=== PATIENT | female | born 1985 | race Caucasian/White ===

== ENCOUNTER 2019-08-03 12:55 | Outpatient (CLI) | payer BC, SELFPAY ==
[2019-08-03 13:09] LABS: Basophils Absolute Auto 0.1 K/mm3 (0.0-0.1); Basophils Percent Auto 0.5 % (0.2-1.2); Eosinophils Absolute Auto 0.2 K/mm3 (0-0.3); Eosinophils Percent Auto 1.5 % (0-4.4); Hematocrit 45.3 % (37.0-47.0); Hemoglobin 15.1 g/dL (12.0-15.0); Immature Granulocyte Absolute 0.04 K/mm3 (0.00-0.031); Immature Granulocyte Percent A 0.3 % (0-0.5); Lymphocytes Absolute Auto 4.85 K/mm3 (0.9-3.2); Lymphocytes Percent Auto 36.3 % (18.3-44.2); Mean Corpuscular HGB Conc 33.3 g/dl (32-36); Mean Corpuscular Hemoglobin 29.5 pg (26-34); Mean Corpuscular Volume 88.5 fl (80-100); Mean Platelet Volume 10.4 fl (7.4-10.4); Monocytes Absolute Auto 0.8 K/mm3 (0.1-0.6); Monocytes Percent Auto 6.1 % (2.6-8.5); Neutrophils Absolute Auto 7.4 K/mm3 (1.3-6.7); Neutrophils Percent Auto 55.3 % (45.5-73.1); Platelet Count Result 240 k/mm3 (150-375); Red Blood Count 5.12 M/mm3 (4.2-5.4); Red Cell Distribution Width 13.2 % (11.5-14.5); White Blood Count 13.4 K/mm3 (4.5-10.0)
== END 2019-08-03 12:56 | disposition home or self-care (01) ==
LOC: ANHVADLAB 13:00 → ANHLAB 15:31
PROVIDERS: Visit Provider Internal Medicine Hematology & Oncology
DX: D72.823 Leukemoid reaction (principal)
CPT/HCPCS: 36415; 85025

== ENCOUNTER 2019-09-12 14:40 | Outpatient (CLI) | payer BC, SELFPAY ==
[2019-09-12 16:09] LABS: Thyroid Stimulating Hormone 3.85 uIU/mL (0.36-3.74)
== END 2019-09-12 14:41 | disposition home or self-care (01) ==
PROVIDERS: PCP Family Medicine; Visit Provider Nurse Practitioner Family
DX: E03.9 Hypothyroidism, unspecified (principal)
CPT/HCPCS: 36415; 84443

== ENCOUNTER 2020-03-18 11:24 | Outpatient (CLI) | payer BC, SELFPAY ==
[2020-03-18 12:54] LABS: Thyroid Stimulating Hormone 1.83 uIU/mL (0.36-3.74)
[2020-03-21 12:47] LABS: Vitamin D 25 Hydroxy 21 ng/mL (30-100)
== END 2020-03-18 11:25 | disposition home or self-care (01) ==
PROVIDERS: PCP Nurse Practitioner Family; Visit Provider Nurse Practitioner Family
DX: E03.9 Hypothyroidism, unspecified (principal); E55.9 Vitamin D deficiency, unspecified
CPT/HCPCS: 36415; 82306; 84443

== ENCOUNTER 2020-04-24 11:19 | Outpatient (CLI) | payer BC, SELFPAY ==
[2020-04-26 11:34] LABS: Vitamin D 25 Hydroxy 28 ng/mL (30-100)
== END 2020-04-24 11:20 | disposition home or self-care (01) ==
LOC: CHSLAB 11:21
PROVIDERS: PCP Family Medicine; Visit Provider Nurse Practitioner Family
DX: E55.9 Vitamin D deficiency, unspecified (principal)
CPT/HCPCS: 36415; 82306

== ENCOUNTER 2020-08-01 12:43 | Outpatient (CLI) | payer BC, SELFPAY ==
[2020-08-01 12:59] LABS: Basophils Absolute Auto 0.1 K/mm3 (0.0-0.1); Basophils Percent Auto 0.4 % (0.2-1.2); Eosinophils Absolute Auto 0.1 K/mm3 (0-0.3); Eosinophils Percent Auto 0.9 % (0-4.4); Hematocrit 43.9 % (37.0-47.0); Hemoglobin 14.7 g/dL (12.0-15.0); Immature Granulocyte Absolute 0.05 K/mm3 (0.00-0.031); Immature Granulocyte Percent A 0.4 % (0-0.5); Lymphocytes Absolute Auto 4.49 K/mm3 (0.9-3.2); Lymphocytes Percent Auto 32.6 % (18.3-44.2); Mean Corpuscular HGB Conc 33.5 g/dl (32-36); Mean Corpuscular Hemoglobin 29.6 pg (26-34); Mean Corpuscular Volume 88.3 fl (80-100); Mean Platelet Volume 10.3 fl (7.4-10.4); Monocytes Absolute Auto 0.8 K/mm3 (0.1-0.6); Monocytes Percent Auto 5.5 % (2.6-8.5); Neutrophils Absolute Auto 8.3 K/mm3 (1.3-6.7); Neutrophils Percent Auto 60.2 % (45.5-73.1); Platelet Count Result 241 k/mm3 (150-375); Red Blood Count 4.97 M/mm3 (4.2-5.4); Red Cell Distribution Width 13.2 % (11.5-14.5); White Blood Count 13.8 K/mm3 (4.5-10.0)
[2020-08-01 13:02] LABS: Blood Urea Nitrogen 8 mg/dL (8-26); Carbon Dioxide 20 mmol/L (22-30); Chloride 109 mmol/L (98-109); Estimated Glomerular Filt Rate > 60; Glucose 87 mg/dL (70-105); Potassium 3.9 mmol/L (3.5-4.9); Sodium 142 mmol/L (138-146)
[2020-08-01 13:04] LABS: Atypical Lymphocytes Present; Platelet Estimate Adequate (Adequate)
[2020-08-01 18:24] LABS: Alanine Aminotransferase 15 U/L (4-35); Alkaline Phosphatase 70 U/L (38-126); Anion Gap 10 mmol/L (8-16); Aspartate Amino Transferase 21 U/L (14-36); Bilirubin,Total 0.8 mg/dL (0.2-1.3); Blood Urea Nitrogen 8 mg/dL (7-17); Calcium 9.4 mg/dL (8.4-10.2); Carbon Dioxide 19 mmol/L (22-30); Chloride 112 mmol/L (98-107); Estimated Glomerular Filt Rate > 60; Glucose 89 mg/dL (65-105); Lactate Dehydrogenase 382 U/L (313-618); Potassium 4.1 mmol/L (3.4-5.0); Sodium 141 mmol/L (137-145)
== END 2020-08-01 12:44 | disposition home or self-care (01) ==
LOC: ANHLAB 12:46
PROVIDERS: PCP Family Medicine; Visit Provider Internal Medicine Hematology & Oncology
DX: D72.823 Leukemoid reaction (principal)
CPT/HCPCS: 36415; 80048; 80053; 83615; 85025

== ENCOUNTER 2020-09-19 11:08 | Outpatient (CLI) | payer BC, SELFPAY ==
[2020-09-19 12:28] LABS: Free T4 Free Thyroxine 1.07 ng/dL (0.76-1.46); Thyroid Stimulating Hormone 0.07 uIU/mL (0.36-3.74)
[2020-09-23 02:55] LABS: Vitamin D 25 Hydroxy 43 ng/mL (30-100)
== END 2020-09-19 11:09 | disposition home or self-care (01) ==
LOC: CHSLAB 11:11
PROVIDERS: PCP Family Medicine; Visit Provider Nurse Practitioner Family
DX: E03.9 Hypothyroidism, unspecified (principal); E55.9 Vitamin D deficiency, unspecified
CPT/HCPCS: 36415; 82306; 84439; 84443

== ENCOUNTER 2020-10-13 09:23 | Emergency (ER) | payer BC, SELFPAY ==
--- NOTE | ~2020-10-13 | US_ITS ---
EXAMINATION: US OB <=14 wk fetus w TV DATE: 10/13/2020 12:19 INDICATION: Back pain and cramping TECHNIQUE: Real-time pelvic transabdominal and transvaginal ultrasound was performed. COMPARISON: None. FINDINGS: The uterus measures 6.3 x 4.2 x 3.4 cm. The pole is not yet identified A yolk sac is identified. There is an intrauterine gestational sac measuring 8 mm , which correlates with an estim ated gestational age of 5 weeks and 3 day(s) (+/-) 3 day(s). The pole is not yet identified. The right ovary measures 1.7 x 1.2 x 0.8 cm. The left ovary measures 3.2 x 2.9 x 2.7 cm. There is nor mal vascular flow in the ovaries. There is no free fluid in the pelvis. IMPRESSION: 1. Intrauterine gestational sac with an estimated gestational age of 5 weeks and 3 day(s) (+/-) 3 day (s) and an estimated delivery date of 06/12/2021 based on mean sac diameter. Reviewed, dictated and finalized at location A. IMPRESSION: 1. Intrauterine gestational sac with an estimated gestational age of 5 weeks an d 3 day(s) (+/-) 3 day(s) and an estimated delivery date of 06/12/2021 based on mean sac diameter.
[2020-10-13 09:38] VITALS: BP 140/92; PULSE 81; RESP 18; TEMP 36.6; O2SAT 100
[2020-10-13 10:30] LABS: Basophils Percent Auto 0.2 % (0.2-1.2); Eosinophils Absolute Auto 0.1 K/mm3 (0-0.3); Eosinophils Percent Auto 0.7 % (0-4.4); Hematocrit 45.1 % (37.0-47.0); Hemoglobin 14.5 g/dL (12.0-15.0); Immature Granulocyte Percent A 0.6 % (0-0.5); Lymphocytes Absolute Auto 3.67 K/mm3 (0.9-3.2); Mean Corpuscular HGB Conc 32.2 g/dl (32-36); Mean Corpuscular Hemoglobin 29.5 pg (26-34); Mean Corpuscular Volume 91.7 fl (80-100); Mean Platelet Volume 10.2 fl (7.4-10.4); Monocytes Absolute Auto 0.8 K/mm3 (0.1-0.6); Monocytes Percent Auto 4.7 % (2.6-8.5); Neutrophils Absolute Auto 11.9 K/mm3 (1.3-6.7); Neutrophils Percent Auto 71.8 % (45.5-73.1); Platelet Count Result 217 k/mm3 (150-375); Red Blood Count 4.92 M/mm3 (4.2-5.4); Red Cell Distribution Width 13.4 % (11.5-14.5); White Blood Count 16.7 K/mm3 (4.5-10.0)
[2020-10-13 10:32] LABS: Add Urine Microscopic? NO; Appearance Urine Clear (Clear); Bilirubin Urine Negative (Negative); Blood Urine Negative (Negative); Color Urine Yellow (Yellow); Glucose Urine UA Negative (Negative); Ketones Urine Negative (Negative); Leukocyte Esterase Ur Negative LEU/UL (Negative); Nitrate Urine Negative (Negative); Protein Urine Negative (Negative); Urobilinogen Urine Negative mg/dL (<2.0)
[2020-10-13 10:39] LABS: Anion Gap 0 mmol/L (8-16); Blood Urea Nitrogen 9 mg/dL (7-17); Calcium 8.7 mg/dL (8.4-10.2); Carbon Dioxide 24 mmol/L (22-30); Chloride 109 mmol/L (98-107); Estimated CRCL calculation 136 ml/min; Estimated Glomerular Filt Rate > 60; Glucose 91 mg/dL (65-110); Potassium 3.8 mmol/L (3.4-5.0); Sodium 133 mmol/L (137-145)
[2020-10-13 11:43] VITALS: BP 132/81; PULSE 70; RESP 18; O2SAT 96
--- NOTE | 2020-10-13 12:56 | ED.GENADULT ---
HPI - General Adult General Chief complaint: Back Pain/Injury Stated complaint: back pain/ Time Seen by Provider: 10/13/20 11:38 Source: patient Mode of arrival: ambulatory Limitations: no limitations History of Present Illness HPI narrative: Patient presents for evaluation of low back pain with symptom onset eight days ago. No precipitating injury. She states she took a home test on Wednesday of this past week which was positive. 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 . She states she has had cramping in her low back bilaterally, with worsening symptoms yesterday. She also has some radiation of her symptoms into her pelvis bilaterally. She denies fever, chills, nausea, vomiting, vaginal bleeding or discharge. She has a hx of endometriosis with what sounds to be uterine ablation in the past. She has vitamins at home. No additional complaints or concerns. Related Data Home Medications Medication Instructions Recorded Confirmed [id number]-[id number] tablet PO 10/13/20 [] Allergies Allergy/AdvReac Type Severity Reaction Status Date / Time clavulanic acid [Augmentin] Allergy Intermediate Unknown Verified 10/13/20 09:40 amoxicillin Allergy Unknown Unknown Verified 10/13/20 09:40 AMOXICILLIN TRIHYDRATE Allergy Mild RASH Uncoded 10/13/20 09:40 POTASSIUM CLAVULANATE Allergy Mild RASH Uncoded 10/13/20 09:40 Review of Systems Review of Systems: CONSTITUTIONAL: Denies fever, chills, or sweats. EYES: Denies visual changes, redness, or discharge. ENT: Denies rhinorrhea, congestion, sore throat, or otalgia. CARDIOVASCULAR: Denies chest pain, palpitations, or edema. RESPIRATORY: Denies cough or dyspnea. GASTROINTESTINAL:Reports some abdominal cramping. Denies nausea, vomiting, or diarrhea. GENITOURINARY: Denies dysuria or hematuria. SKIN: Denies rash or itching. MUSCULOSKELETAL: Reports low back pain. Denies joint pain, or myalgia. NEUROLOGIC: Denies headache, numbness, dizziness, or weakness. PSYCHIATRIC: Denies anxiety or depression. [facility] Past Medical History Medical History Chronic headaches Chronic low back pain (03/09/16) Depression Endometriosis, site unspecified (03/09/16) Shorty's disease Hypothyroidism Leucocytosis Reactive Leucocytosis Overweight Tobacco use Vitamin D deficiency Surgical History Surgical History History of adenoidectomy Hx of tonsillectomy Family History Family History Other Family history of atrial fibrillation Family history of chronic obstructive pulmonary disease Family history of lung cancer Family history of lung disease Family history of thyroid disease Social History Social History (Updated 10/13/20 @ 12:58 by JOHANNY Rasheed, ) Smoking packs per day: 0.75 Smoking cigarettes per day: 15.0 Smoking status: Current some day smoker Tobacco type: cigarettes and cigars Additional smoking assessment comments: Quit 2013 Alcohol intake: current Alcohol use details: Social basis Substance use: never Living arrangements: alone Additional living arrangements comments: . Additional occupation/education comments: Works at [employer] Gender identity (if verbalized by the patient): Female Sexual Orientation (if Verbalized by the Patient): Straight or Heterosexual Spiritual care concerns: No Exam Narrative: GENERAL: Well-appearing, well-nourished, and in no acute distress. HEAD: Normocephalic, atraumatic. EYES: PERRLA and EOMI. ENT: Nares clear, no rhinorrhea or epistaxis. Mucous membranes moist. Oropharynx without tonsillar hypertrophy exudate or other lesions. Bilateral TMs pearly more nonbulging NECK: Supple. No adenopathy or
== END 2020-10-13 14:00 | disposition home or self-care (01) ==
PROVIDERS: Emergency Medicine; Emergency Provider Nurse Practitioner; PCP Family Medicine
DX: O26.891 Other specified pregnancy related conditions, first trimester (principal); M54.9 Dorsalgia, unspecified; Z3A.01 Less than 8 weeks gestation of pregnancy
CPT/HCPCS: 36415; 76801; 76817; 80048; 81003; 81025; 84702; 85025; 85461; 99284

== ENCOUNTER 2020-11-14 12:00 | Outpatient (CLI) | payer BC, SELFPAY ==
[2020-11-14 13:19] LABS: Free T4 Free Thyroxine 0.79 ng/dL (0.76-1.46); Thyroid Stimulating Hormone 1.82 uIU/mL (0.36-3.74)
== END 2020-11-14 12:01 | disposition home or self-care (01) ==
LOC: CHSLAB 12:03
PROVIDERS: PCP Family Medicine; Visit Provider Nurse Practitioner Family
DX: E03.9 Hypothyroidism, unspecified (principal); Z34.90 Encounter for supervision of normal pregnancy, unspecified, unspecified trimester
CPT/HCPCS: 36415; 84439; 84443; 84702

== ENCOUNTER 2020-11-28 11:39 | Outpatient (CLI) | payer BC, SELFPAY ==
[2020-11-28 12:11] LABS: Hematocrit 41.8 % (35.0-49.0); Hemoglobin 14.2 g/dL (12.0-15.0); Mean Corpuscular Hemoglobin 30.5 pg (27.0-31.0); Mean Corpuscular Volume 89.9 fL (78.0-102.0); Platelet Count Result 227 K/mm3 (150-420); Red Blood Count 4.65 M/mm3 (4.20-5.40); Red Cell Distribution Width 12.8 % (11.6-14.4); White Blood Count 17.2 K/mm3 (4.8-10.8)
[2020-11-28 12:17] LABS: Add Urine Microscopic? NO; Appearance Urine Clear (Clear); Bilirubin Urine Negative (Negative); Blood Urine Negative (Negative); Color Urine Light Yellow (Yellow); Glucose Urine UA Negative (Negative); Ketones Urine Negative (Negative); Leukocyte Esterase Ur Negative (Negative); Nitrate Urine Negative (Negative); Protein Urine Negative (Negative); Specific Grav Ur 1.025 (1.010-1.020); Urobilinogen Urine 0.2 mg/dL (0.2-1.0); pH Urine 5.5 (5.0-8.0)
[2020-11-28 13:00] LABS: Band Neutrophils Percent 0 % (0-6); Eosinophils Absolute Manual 0.17 K/mm3 (0.02-0.5); Eosinophils Percent Manual 1 % (1-6); Lymphocytes Absolute Manual 3.44 K/mm3 (1.1-4.5); Lymphocytes Percent Manual 20 % (18-44); Monocytes Absolute Manual 0.34 K/mm3 (0.1-0.90); Monocytes Percent Manual 2 % (3-9); Neutrophils Absolute Manual 13.24 K/mm3 (1.7-7.2); Neutrophils Percent Manual 77 % (46-73); Platelet Estimate Adequate (Adequate); Total Cells Counted 100
[2020-11-28 13:29] LABS: HIV 1 P24 AG Negative (Negative); HIV 1/2 AB Negative (Negative)
[2020-12-01 15:36] LABS: RPR Screen Non-Reactive (Non-Reactive)
[2020-12-01 18:56] LABS: Rubella IgG Antibody <0.90 Index
[2020-12-02 02:52] LABS: Vitamin D 25 Hydroxy 27 ng/mL (30-100)
[2020-12-02 10:40] LABS: Hematocrit 42.1 % (35.0-45.0); Hemoglobin 13.8 g/dL (11.7-15.5); MCH 30.6 pg (27.0-33.0); MCV 92.8 fL (80.0-100.0); Red Blood Cell Count 4.53 Mill/uL (3.80-5.10)
[2020-12-02 19:05] LABS: Hepatitis B Surface Antigen Nonreactive (Nonreactive); Hepatitis C Signal to Cutoff 0.01 ratio (<1.00); Hepatitis C Virus Antibody Nonreactive (Nonreactive)
[2020-12-08 18:04] LABS: CF Result NEGATIVE (NEGATIVE); Ethnicity NG
== END 2020-11-28 11:40 | disposition home or self-care (01) ==
LOC: CHSLAB 11:42
PROVIDERS: PCP Family Medicine; Visit Provider Student in an Organized Health Care Education/Training Program
DX: Z34.90 Encounter for supervision of normal pregnancy, unspecified, unspecified trimester (principal)
CPT/HCPCS: 36415; 81003; 81220; 81243; 82306; 83021; 84443; 85025; 86592; 86703; 86762; 86787; 86850; 86900; 86901; 87086

== ENCOUNTER 2021-03-02 10:51 | Outpatient (RCR) | payer BC, SELFPAY ==
[2021-03-02 11:25] VITALS: BP 123/76; PULSE 80
== END 2021-05-31 23:59 | disposition home or self-care (01) ==
LOC: ANHOBOP 10:51
PROVIDERS: PCP Family Medicine; Visit Provider Student in an Organized Health Care Education/Training Program
DX: O36.8120 Decreased fetal movements, second trimester, not applicable or unspecified (principal); Z3A.24 24 weeks gestation of pregnancy
CPT/HCPCS: 59025

== ENCOUNTER 2021-03-07 11:14 | Outpatient (RCR) | payer BC, SELFPAY ==
[2021-03-07 11:50] LABS: Basophils Absolute Auto 0.1 K/mm3 (0.0-0.1); Basophils Percent Auto 0.4 % (0.2-1.2); Eosinophils Absolute Auto 0.1 K/mm3 (0-0.3); Eosinophils Percent Auto 0.5 % (0-4.4); Hematocrit 39.1 % (37.0-47.0); Hemoglobin 13.2 g/dL (12.0-15.0); Immature Granulocyte Absolute 0.36 K/mm3 (0.00-0.031); Immature Granulocyte Percent A 1.8 % (0-0.5); Lymphocytes Absolute Auto 3.61 K/mm3 (0.9-3.2); Lymphocytes Percent Auto 17.7 % (18.3-44.2); Mean Corpuscular HGB Conc 33.8 g/dl (32-36); Mean Corpuscular Volume 91.8 fl (80-100); Mean Platelet Volume 9.8 fl (7.4-10.4); Monocytes Absolute Auto 0.9 K/mm3 (0.1-0.6); Monocytes Percent Auto 4.3 % (2.6-8.5); Neutrophils Absolute Auto 15.4 K/mm3 (1.3-6.7); Neutrophils Percent Auto 75.3 % (45.5-73.1); Platelet Count Result 212 k/mm3 (150-375); Red Blood Count 4.26 M/mm3 (4.2-5.4); Red Cell Distribution Width 13.1 % (11.5-14.5); White Blood Count 20.4 K/mm3 (4.5-10.0)
[2021-03-07 12:31] LABS: Vitamin D 25 Hydroxy 41.8 ng/mL
[2021-03-07 12:52] LABS: Glucose 1 Hour PP 50gm Dose 119 mg/dL
[2021-03-07] MEDS: RHO(D) IMMUNE GLOBULIN 300 MCG/2 ML SYRINGE IM (15:04)
== END 2021-06-05 23:59 | disposition home or self-care (01) ==
LOC: ANHLAB 11:14
PROVIDERS: PCP Family Medicine; Visit Provider Obstetrics & Gynecology
DX: Z29.13 Encounter for prophylactic Rho(D) immune globulin (principal); O36.0190 Maternal care for anti-D [Rh] antibodies, unspecified trimester, not applicable or unspecified; Z3A.00 Weeks of gestation of pregnancy not specified
CPT/HCPCS: 36415; 82306; 82947; 84443; 85025; 85461; 90384; 96372; J2790

== ENCOUNTER 2021-04-01 18:39 | Outpatient (CLI) | payer BC, SELFPAY ==
[2021-04-01 19:02] VITALS: BP 136/72; PULSE 97
[2021-04-01 19:40] VITALS: BP 136/72; PULSE 97
--- NOTE | 2021-04-01 19:45 | PC.NURSE ---
Dr Bautista notified of adm c/o of leaking, negative ROM plus, and reassuring fht's for gestational age.
== END 2021-04-01 19:44 | disposition home or self-care (01) ==
LOC: ANHOBOP 18:44 → ANHOBPP 18:45
PROVIDERS: PCP Family Medicine; Visit Provider Student in an Organized Health Care Education/Training Program
DX: O41.8X90 Other specified disorders of amniotic fluid and membranes, unspecified trimester, not applicable or unspecified (principal); Z3A.00 Weeks of gestation of pregnancy not specified
CPT/HCPCS: 59025; 84112; 99199

== ENCOUNTER 2021-04-18 15:53 | Outpatient (CLI) | payer BC, SELFPAY ==
[2021-04-18 16:10] LABS: Hematocrit 37.9 % (35.0-49.0); Hemoglobin 12.5 g/dL (12.0-15.0); Mean Corpuscular Hemoglobin 30.1 pg (27.0-31.0); Mean Corpuscular Volume 91.3 fL (78.0-102.0); Mean Platelet Volume 9.9 fl (9.2-11.8); Platelet Count Result 240 K/mm3 (150-420); Red Blood Count 4.15 M/mm3 (4.20-5.40); Red Cell Distribution Width 12.8 % (11.6-14.4)
[2021-04-18 16:23] LABS: White Blood Count 22.7 K/mm3 (4.8-10.8)
[2021-04-18 16:54] LABS: Band Neutrophils Percent 0 % (0-6); Basophils Percent Manual 0 % (0-1); Eosinophils Absolute Manual 0.22 K/mm3 (0.02-0.5); Eosinophils Percent Manual 1 % (1-6); Lymphocytes Absolute Manual 6.12 K/mm3 (1.1-4.5); Lymphocytes Percent Manual 27 % (18-44); Monocytes Percent Manual 4 % (3-9); Neutrophils Absolute Manual 15.43 K/mm3 (1.7-7.2); Neutrophils Percent Manual 68 % (46-73); Platelet Estimate Adequate (Adequate); Total Cells Counted 100
[2021-04-18 17:35] LABS: HIV 1 P24 AG Negative (Negative); HIV 1/2 AB Negative (Negative)
[2021-04-23 16:32] LABS: RPR Screen Non-Reactive (Non-Reactive)
== END 2021-04-18 15:54 | disposition home or self-care (01) ==
LOC: CHSLAB 15:55
PROVIDERS: PCP Family Medicine; Visit Provider Student in an Organized Health Care Education/Training Program
DX: Z34.03 Encounter for supervision of normal first pregnancy, third trimester (principal)
CPT/HCPCS: 36415; 85025; 86592; 86703

== ENCOUNTER 2021-05-16 14:18 | Observation (INO) | payer BC, SELFPAY ==
[2021-05-16 14:41] VITALS: BP 111/71; PULSE 91
[2021-05-16 15:00] VITALS: BP 114/66; PULSE 79
[2021-05-16 15:20] VITALS: BP 113/62; PULSE 82
--- NOTE | 2021-05-16 15:29 | OBADM ---
This patient, Itzel Garcia, admitted to the OB room OB Post 117 for observation. Patient/family oriented to hospital policies and general routines including ID bracelet, bed and alarms, visiting hours, pain management, procedures, bathroom and other care routines, personal items, smoking policy, room service/diet, and visiting hours. Patient/Family are encouraged to report perceived risks to care and to ask questions if they do not understand what they are told or what they should do.
--- NOTE | 2021-06-09 11:25 | PM.OBTRLD ---
OB - Triage/Final Diagnosis Visit Information Comments/Additional reasons for admission: I have assessed the risk for this patient, Itzel Garcia, and determined that she would benefit from observation care. Final Diagnosis (1) False labor: Code(s): O47.9 - False labor, unspecified Status: Acute
== END 2021-05-16 15:27 | disposition home or self-care (01) ==
PROVIDERS: Admitting Provider Student in an Organized Health Care Education/Training Program; PCP Family Medicine; Visit Provider Student in an Organized Health Care Education/Training Program
DX: O47.03 False labor before 37 completed weeks of gestation, third trimester (principal); Z3A.35 35 weeks gestation of pregnancy
CPT/HCPCS: G0378; G0379

== ENCOUNTER 2021-06-14 17:04 | Outpatient (CLI) | payer BC, SELFPAY | END 2021-06-14 17:57 | disposition home or self-care (01) | LOC: ANHOBOP 17:51 → ANHLDR 17:52 | PROVIDERS: PCP Family Medicine; Visit Provider Student in an Organized Health Care Education/Training Program | DX: O42.90 Premature rupture of membranes, unspecified as to length of time between rupture and onset of labor, unspecified weeks of gestation (principal); Z3A.00 Weeks of gestation of pregnancy not specified | CPT/HCPCS: 84112; 99199 ==

== ENCOUNTER 2021-06-16 12:05 | Outpatient (RCR) | payer BC, SELFPAY ==
[2021-06-12 11:22] VITALS: BP 119/74; PULSE 93
--- NOTE | ~2021-06-16 | US_ITS ---
EXAMINATION: US OB limited w BPP EXAM DATE: 06/12/2021 10:49 INDICATION: Decreased Movement, BPP 3rd trimester. TECHNIQUE: Pelvic obstetrical transabdominal sonogram was performed by a technologist. There are mu ltiple grayscale and Doppler images available for interpretation. Comparison is made to prior examina tion from 10/13/2020. FINDINGS: There is a single fetus identified in vertex presentation with a heart rate of 136 beats pe r minute. The placenta is located in the anterior position. There is no sonographic evidence of retr oplacental hemorrhage identified. AMNIOTIC FLUID INDEX Quadrant 1: 0 cm Quadrant 2: 1.4 cm Quadrant 3: 3.3 cm Quadrant 4: 2.8 cm Amniotic fluid index: 7.5 cm. (The 5th -- 95th percentile range is 7.2-22.6. BIOPHYSICAL PROFILE (performed by the technologist) breathing (30 sec sustained breathing in 30 minutes): 2 out of 2 movement (3 gross body movements in 30 minutes): 2 out of 2 tone (one episode of ysnobnb-jaupknqwn-bvdghwp limb movement): 2 out of 2 Amniotic fluid pocket (2 cm): 2 out of 2 Total score: 8 out of 8 IMPRESSION: 1. Single fetus with heart rate of 136 bpm. 2. Normal biophysical profile score of 8 out of 8. 3. LILIAN 7.5 cm, lower limits of normal. Reviewed, dictated and finalized at location B.
--- NOTE | ~2021-06-16 | US_ITS ---
EXAMINATION: US OB limited w BPP EXAM DATE: 06/16/2021 13:30 INDICATION: BPP, LILIAN, gestational age. 3rd trimester. TECHNIQUE: Pelvic obstetrical transabdominal sonogram was performed by a technologist. There are mu ltiple grayscale and Doppler images available for interpretation. Comparison is made to prior examina tion from 06/12/2021. FINDINGS: There is a single fetus identified in vertex presentation with a heart rate of 151 beats pe r minute. The placenta is located in the anterior position. There is no sonographic evidence of retr oplacental hemorrhage identified. AMNIOTIC FLUID INDEX Quadrant 1: 3.3 cm Quadrant 2: 2.0 cm Quadrant 3: 1.5 cm Quadrant 4: 1.1 cm Amniotic fluid index: 8.0 cm. (The 5th -- 95th percentile range is 7.1-21.4). BIOPHYSICAL PROFILE (performed by the technologist) breathing (30 sec sustained breathing in 30 minutes): 2 out of 2 movement (3 gross body movements in 30 minutes): 2 out of 2 tone (one episode of umkmvjq-mcexttmgq-olxihbj limb movement): 2 out of 2 Amniotic fluid pocket (2 cm): 2 out of 2 Total score: 8 out of 8 IMPRESSION: 1. Single fetus with heart rate of 151 bpm. 2. Normal biophysical profile score of 8 out of 8. 3. LILIAN 8.0 cm, lower limits of normal. Reviewed, dictated and finalized at location A.
[2021-06-16 12:44] VITALS: BP 122/94; PULSE 95
== END 2021-07-07 08:23 | disposition home or self-care (01) ==
LOC: ANHOBOP 12:05
PROVIDERS: PCP Family Medicine; Visit Provider Student in an Organized Health Care Education/Training Program
DX: O36.8130 Decreased fetal movements, third trimester, not applicable or unspecified (principal); Z3A.39 39 weeks gestation of pregnancy; Z3A.40 40 weeks gestation of pregnancy
CPT/HCPCS: 59025; 76815; 76819

== ENCOUNTER 2021-06-18 04:54 | Inpatient (IN) | payer BC, SELFPAY ==
[2021-06-18] VITALS (117 sets, daily range): BP systolic 64–155; BP diastolic 40–122; PULSE 66–248; RESP 16; TEMP 36.6–37.4; O2SAT 96–100; BMI 40.6
--- NOTE | 2021-06-18 05:08 | LDADM ---
This patient, Iztel Garcia, was admitted to Labor/Delivery/Recovery 108 on 06/18/21 at 04:54. Plans for labor, pain management and were discussed with patient. Patient/family oriented to hospital policies and general routines including ID bracelet, bed and alarms, visiting hours, pain management, procedures, bathroom and other care routines, personal items, smoking policy, room service/diet and guest tray routines, security routines, and visiting hours. Patient/Family are encouraged to report perceived risks to care and to ask questions if they do not understand what they are told or what they should do. See OBIX for further documentation.
[2021-06-18 05:27] LABS: Basophils Absolute Auto 0.1 K/mm3 (0.0-0.1); Basophils Percent Auto 0.4 % (0.2-1.2); Eosinophils Absolute Auto 0.1 K/mm3 (0-0.3); Eosinophils Percent Auto 0.6 % (0-4.4); Hematocrit 39.4 % (37.0-47.0); Hemoglobin 13.2 g/dL (12.0-15.0); Immature Granulocyte Absolute 0.48 K/mm3 (0.00-0.031); Immature Granulocyte Percent A 2.2 % (0-0.5); Lymphocytes Absolute Auto 3.94 K/mm3 (0.9-3.2); Lymphocytes Percent Auto 17.7 % (18.3-44.2); Mean Corpuscular HGB Conc 33.5 g/dl (32-36); Mean Corpuscular Hemoglobin 29.9 pg (26-34); Mean Corpuscular Volume 89.1 fl (80-100); Mean Platelet Volume 10.2 fl (7.4-10.4); Monocytes Absolute Auto 1.2 K/mm3 (0.1-0.6); Monocytes Percent Auto 5.4 % (2.6-8.5); Neutrophils Absolute Auto 16.5 K/mm3 (1.3-6.7); Neutrophils Percent Auto 73.7 % (45.5-73.1); Platelet Count Result 219 k/mm3 (150-375); Red Blood Count 4.42 M/mm3 (4.2-5.4); Red Cell Distribution Width 13.4 % (11.5-14.5); White Blood Count 22.3 K/mm3 (4.5-10.0)
[2021-06-18] MEDS: LACTATED RINGERS 1,000 ML 125 ML IV CONT ×2 (05:40→08:32)
[2021-06-18] MEDS: OXYTOCIN 30 UNITS/NS 500 ML 30 UNITS/500 ML BAG 6 UNITS IV CONT (05:40)
[2021-06-18] MEDS: fentaNYL CITRATE INJ (*CRX) 100 MCG/2 ML VIAL 50 MCG IV PUSH (08:10)
--- NOTE | 2021-06-18 08:36 | PM.IMHP ---
H&P: HPI History of Present Illness Date/Time: 06/18/21 08:36 Patient is a 36-year-old last menstrual period 09/09/2020 currently 40 weeks 2 days gestation with SULEMA 06/16/2021. Patient is dated by LMP consistent with ultrasound on 11/08/20 at 8 weeks gestation. Patient presents to labor and delivery for scheduled elective induction of labor. In general, patient doing well. Reports occasional contractions. Denies any vaginal bleeding or leakage of fluid. Reports good movement. Chief Complaint: Intrauterine at 40w2d gestation Elective induction of labor Review of Systems Review of Systems: All systems reviewed & are unremarkable except as noted in HPI and below Constitutional: Constitutional: Reports as per HPI, Reports no additional constitutional complaints, Denies chills, Denies fever(s), Denies headache(s) and Denies night sweats Eyes: Eyes: Reports as per HPI and Reports no additional eye complaints ENT: Reports system reviewed and no additional complaints, except as documented, Reports as per HPI, Reports Normal hearing present and Denies headache(s) Cardiovascular: Cardiovascular: Reports as per HPI, Reports no additional cardiovascular complaints, Denies chest pain and Denies dyspnea Respiratory: Respiratory: Reports as per HPI, Reports no additional respiratory complaints, Denies cough and Denies dyspnea Gastrointestinal: Gastrointestinal: Reports as per HPI, Reports no additional gastrointestinal complaints, Denies abdominal pain, Denies change in bowel habits, Denies change in stool character, Denies nausea and Denies vomiting Genitourinary: Genitourinary: Reports no additional female genitourinary complaints, Reports as per HPI, Denies abnormal vaginal bleeding, Denies genital lesions, Denies hot flashes, Denies dyspareunia, Denies pelvic pain, Denies sexual dysfunction, Denies urinary incontinence, Denies vaginal discharge, Denies vaginal dryness and Denies vaginal odor Musculoskeletal: Musculoskeletal: Reports no additional musculoskeletal complaints and Reports as per HPI Integumentary/Breasts: Skin/Breast: Reports system reviewed and no additional complaints, except as docu, Reports as per HPI, Denies breast pain and Denies nipple discharge Neurologic: Reports system reviewed and no additional complaints, except as documented, Reports as per HPI, Reports Normal hearing present and Denies headache(s) Psychiatric: Psychiatric: Reports no additional psychiatric complaints, Reports as per HPI, Denies anxiety and Denies depression Endocrine: Endocrine: Reports no additional endocrine complaints and Reports as per HPI Hematologic/Lymphatic: Hematologic/Lymphatic: Reports no additional hematologic/lymphatic complaints and Reports as per HPI Allergic/Immunologic: Allergic/Immunologic: Reports no additional allergic/immunologic complaints and Reports as per HPI PMF Past Medical History Medical History Chronic headaches Chronic low back pain (03/09/16) Depression Endometriosis, site unspecified (03/09/16) Shorty's disease Hypothyroidism Leucocytosis Reactive Leucocytosis Overweight Tobacco use Vitamin D deficiency Surgical History Surgical History History of adenoidectomy Hx of laparoscopy Hx of tonsillectomy Family History Family History Father Family history of atrial fibrillation Aortic aneurysm Family history of chronic obstructive pulmonary disease Dementia Grandparent Family history of lung cancer Heart disease Mother Family history of thyroid disease Social History Social History Smoking packs per day: 0.25 Smoking cigarettes per day: 5.0 Smoking status: Current every day smoker Tobacco type: cigarettes Second hand tobacco smoke exposure: Yes Additional sm
--- NOTE | 2021-06-18 08:55 | WPDHPUPDATE1 ---
History and Physical Update Update Date/Time: 06/18/21 08:55 History and Physical has been reviewed, including an updated exam of the patient. There are NO changes in the patient's condition. Risks, benefits, and alternatives have been discussed and questions answered. Patient agrees to proceed with procedure.
--- NOTE | 2021-06-18 08:56 | WPDANESEPPF ---
Anes - Initial Pre Proc Eval Procedure: labor epidural Date/Time: 06/18/21 08:56 Surgeon: Madisyn Bryan MD Pre Op Diagnosis: labor pain Pre Op Diagnosis: IOL Patient Data Age: 36 Gender: F Height: 1.6 m Weight: 104 kg Last Vital Signs Temp 36.6 C 06/18/21 05:22 Pulse 80 06/18/21 08:55 BP 121/57 L 06/18/21 08:55 Pulse Ox 100 06/18/21 08:52 Allergies Allergy/AdvReac Type Severity Reaction Status Date / Time clavulanic acid [Augmentin] Allergy Intermediate Rash Verified 06/12/21 08:30 amoxicillin [From Augmentin] Allergy Mild Rash Verified 06/18/21 05:05 AMOXICILLIN TRIHYDRATE Allergy Mild RASH Uncoded 03/18/21 09:16 POTASSIUM CLAVULANATE Allergy Mild RASH Uncoded 03/18/21 09:16 Home Medications Medication Instructions Recorded Confirmed Type thyroid (pork) 60 mg tablet See Rx Instructions .ROUTE 05/26/21 06/18/21 Rx .COMPLEX #60 tablet [id number] fum-folic ac-om3 1 pkg PO 4XW 06/18/21 06/18/21 History [One Daily ] Laboratory Tests 06/18/21 06/18/21 06/18/21 05:20 05:20 05:20 WBC 22.3 K/mm3 H K/mm3 (4.5-10.0) RBC 4.42 M/mm3 M/mm3 (4.2-5.4) Hgb 13.2 g/dL g/dL (12.0-15.0) Hct 39.4 % % (37.0-47.0) MCV 89.1 fl fl (80-100) MCH 29.9 pg pg (26-34) MCHC 33.5 g/dl g/dl (32-36) RDW 13.4 % % (11.5-14.5) Plt Count 219 k/mm3 k/mm3 (150-375) MPV 10.2 fl fl (7.4-10.4) Immature Gran % (Auto) 2.2 % H % (0-0.5) Neut % (Auto) 73.7 % H % (45.5-73.1) Lymph % (Auto) 17.7 % L % (18.3-44.2) Payne % (Auto) 5.4 % % (2.6-8.5) Eos % (Auto) 0.6 % % (0-4.4) Baso % (Auto) 0.4 % % (0.2-1.2) Lymph # (Auto) 3.94 K/mm3 H K/mm3 (0.9-3.2) Payne # (Auto) 1.2 K/mm3 H K/mm3 (0.1-0.6) Eos # (Auto) 0.1 K/mm3 K/mm3 (0-0.3) Baso # (Auto) 0.1 K/mm3 K/mm3 (0.0-0.1) Abs Immat Gran (auto) 0.48 K/mm3 H K/mm3 (0.00-0.031) Absolute Neuts (auto) 16.5 K/mm3 H K/mm3 (1.3-6.7) Absolute Nucleated RBC 0.0 K/mm3 K/mm3 (0.0-0.012) Nucleated RBC % 0.0 % % (0.0-0.2) RPR Pending Blood Type A Negative Antibody Screen Negative Patient hx anesthesia problems: none Family hx anesthesia problems: none Results Review: All pre-operative results and documents have been reviewed as part of the pre-operative evaluation. [facility] Past Medical History Medical History Chronic headaches Chronic low back pain (03/09/16) Depression Endometriosis, site unspecified (03/09/16) Shorty's disease Hypothyroidism Leucocytosis Reactive Leucocytosis Overweight Tobacco use Vitamin D deficiency Surgical History Surgical History History of adenoidectomy Hx of laparoscopy Hx of tonsillectomy Family History Family History Father Family history of atrial fibrillation Aortic aneurysm Family history of chronic obstructive pulmonary disease Dementia Grandparent Family history of lung cancer Heart disease Mother Family history of thyroid disease Social History Social History Smoking packs per day: 0.25 Smoking cigarettes per day: 5.0 Smoking status: Current every day smoker Tobacco type: cigarettes Second hand tobacco smoke exposure: Yes Additional smoking assessment comments: Quit 2013 Alcohol intake: current Alcohol use details: Social basis Substance use: never Additional living arrangements comments: . Additional occupation/education comments: Works at [employer] Gender identity (if verbalized by the patient): Female Sexual Orientation (if Verbalized by the Patient):
[2021-06-18 12:39] LABS: Rapid Plasma Reagin Non-Reactive (NonReactive)
[2021-06-18] MEDS: ONDANSETRON INJ 4 MG/2 ML VIAL IV PUSH (12:54)
--- NOTE | 2021-06-18 20:45 | PM.OBPRVD ---
OB - Delivery Note Procedure Delivery date: 06/18/21 Procedure: The patient is a 36-year-old now who presented to labor and delivery on the morning of 06/18/2021 at 40 weeks 2 days gestation for elective induction of labor and postdates. Patient was admitted to labor and delivery. Initial cervical exam was approximately 2 cm dilated. Induction of labor was started with Pitocin. Pitocin was slowly titrated throughout the morning. Artificial rupture of membranes was performed at 7:57 a.m. Meconium-stained amniotic fluid was noted. Pitocin was continuously titrated throughout the morning. Patient became uncomfortable and requested an epidural for pain management which was placed without difficulty. Patient continued to make steady, progressive change throughout the remainder of the afternoon. Patient was noted to be fully dilated at 4:51 p.m. Patient was encouraged to push. She was prepped and draped for delivery. A right mediolateral episiotomy was performed and patient delivered infant head atraumatically and without difficulty in WILFRIDO presentation at 8:18 p.m. Occiput restituted to maternal right side. With subsequent push, the 's neck, shoulders, and rest of body delivered without difficulty. Due to meconium-stained amniotic fluid, was not stimulated. Infant did begin crying spontaneously, however, cord was quickly clamped and cut and infant was taken to warmer where care was assumed by awaiting nursing staff. A segment of cord was collected for cord gases. Cord blood was collected. The placenta was delivered spontaneously and intact. Uterine fundus was noted to be firm with massage. The episiotomy was repaired in with 2-0 and 3-0 Vicryl in the usual fashion. Excellent hemostasis was noted. No additional lacerations were noted. Estimated blood loss for entire delivery 150 cc. was a live-born female infant, apgars 9 and 9, weighing 7 lb 8 oz. Infant did have an elevated temperature immediately after delivery. Both mother baby doing well at end of delivery. Events: Elective Induction of Labor Induction method: Per Pitocin Protocol Delivery augmentation: Rupture of Membranes Delivery monitor: External FHT and External Uterine Route of delivery: Episiotomy description: Right Mediolateral Laceration Description: None (no additional lacerations) Delivery repair: vicryl (2-0 and 3-0 ) Specimen: Yes (placenta and cord, cord blood, and cord gases) Quantitative Blood Loss (ml): 150 Anesthesia type: Epidural Disposition: Floor Complications: No immediate complications Baby Date of : 06/18/21 Time of : 20:18 Weeks of gestation at delivery: 40 (40.2) gender: Female Weight (pounds): 7 Weight (ounces): 8 presentation: vertex position: Right Occiput Anterior Placenta delivery description: Spontaneous Cord Vessel Description: 3 Vessels score one minute: 9 score five minutes: 9 AMG Delivery Billing Delivery Delivery: Delivery Charge
[2021-06-18] MEDS: OXYTOCIN 30 UNITS/NS 500 ML 30 UNITS/500 ML BAG 125 UNITS IV CONT (20:50)
[2021-06-18] MEDS: LIDOCAINE HCL 1% LOCAL INJ 10 ML VIAL (22:11)
[2021-06-18] MEDS: IBUPROFEN 600 MG TABLET PO (22:26)
[2021-06-18] MEDS: BENZOCAINE 20% AER SPR (*SP) 56 GM CAN 1 SPRAY TOPICAL (22:26)
[2021-06-18] MEDS: WITCH HAZEL 40 PADS 1 PAD TOPICAL (22:26)
--- NOTE | 2021-06-18 23:05 | OBPPTRN ---
Patient transferred to post room # 281 via wheelchair. Support persons present. Oriented to unit, room, information board, rooming in, admission packet and security measures. Patient verbalizes understanding.
[2021-06-18] MEDS: HYDROcodone/acetaminophen (*CRX) 5-325 MG TABLET 1 TAB PO (23:21)
[2021-06-19] MEDS: HYDROcodone/acetaminophen (*CRX) 5-325 MG TABLET 1 TAB PO ×5 (02:17→21:09)
[2021-06-19 03:40] VITALS: BP 107/79; PULSE 60; RESP 16; TEMP 36.7; O2SAT 99
[2021-06-19 04:46] LABS: Hematocrit 35.6 % (37.0-47.0); Hemoglobin 12.2 g/dL (12.0-15.0)
--- NOTE | 2021-06-19 07:40 | PC.NURSE ---
0730 - Introductions were made, then consulted with patient to assess needs related to . Mother led the conversation with her experience feeding her infant so far. Encouraged understanding of the benefits of skin to skin (unwrapping infant and placing vertically on her chest), responsive feeding and how to watch for early feeding signs, frequency of feeding on demand about every 8-12 times in 24 hours (every 2-3 hours), milk production, duration of feeding, signs of adequate intake/output and how to record on the feeding sheet. Nipple care reviewed with optimal latch and good positioning. Reviewed good handwashing when or touching the breast/nipples to prevent infection. Resources used to facilitate learning were used with the visual handouts/mom and baby guide. Mother voiced understanding of responsive feedings, stimulating with skin to skin, hand expressed colostrum, touch, talking to to encourage if it has been 2 -3 hours since the start of the last , to call if does not latch or there is discomfort with . Reported to the primary RN.
[2021-06-19 08:00] VITALS: BP 123/67; PULSE 63; RESP 18; TEMP 36.4
[2021-06-19] MEDS: LANOLIN (LANSINOH) 7.5 GM CREAM 1 APPLIC TOPICAL (08:12)
[2021-06-19] MEDS: DOCUSATE SODIUM 100 MG CAPSULE PO ×2 (08:13→17:25)
[2021-06-19] MEDS: MULTIVIT/MIN/PREN/FOL AC/IRON TABLET 1 TAB PO (08:13)
[2021-06-19] MEDS: IBUPROFEN 600 MG TABLET PO ×3 (08:13→21:09)
--- NOTE | 2021-06-19 08:34 | PM.OBPNVD ---
OB - PN: Subj Subjective Date/time seen: 06/19/21 08:34 Patient doing well this AM. Pain well controlled with medication. Normal lochia. Ambulating without difficulty. Voiding well. OB - PN: Obj Data Labs CBC & Chem 7: 06/19/21 03:51 Labs: Laboratory Results - last 24 hr 06/18/21 06/19/21 05:20 03:51 Hgb 12.2 Hct 35.6 L RPR Non-reactive OB - PN A/P Assessment and Plan (1) Normal spontaneous vaginal delivery: Code(s): O80 - Encounter for full-term uncomplicated delivery Status: Acute Assessment and Plan: PPD#1 doing well continue routine care Time Spent With Patient Time: Total time spent is greater than 50% in coordination of care (as documented) at patient's floor/unit and/or counseling patient: Exam Const: General: cooperative, healthy appearing, comfortable and no acute distress GI: Inspection: non-distended GI Palp: Yes Soft to palpation and No Tenderness to palpation present (GI) Other: fundus firm below umbilicus Extrem: Right lower extremity: no edema Left lower extremity: no edema Other: no calf tenderness
--- NOTE | 2021-06-19 10:34 | WPDANLDPN2 ---
Anes-Prog Note L&D Date/Time: 06/19/21 10:34 Comfortable throughout: labor and delivery Neuraxial method: epidural Epidural/Spinal procedure site: clean & non-tender Neuro status: Neuro function grossly intact. Cardiovascular status: normal Respiratory status: normal Airway patency: baseline Mental status: baseline Post-Op hydration status: normal Vital Signs: Last Vital Signs Temp 36.4 C 06/19/21 08:00 Pulse 63 06/19/21 08:00 Resp 18 06/19/21 08:00 BP 123/67 06/19/21 08:00 Pulse Ox 99 06/19/21 03:40 Pain score (VAS): 03/10 I/O: Intake & Output 06/18/21 06/19/21 06/19/21 23:59 07:59 15:59 Intake Total 200 Output Total 600 Balance -600 200 Post-procedural complaints: none Patient feedback: Patient satisfied with anesthetic care.
[2021-06-19 11:25] VITALS: BP 105/47; PULSE 61; PULSE 72; RESP 18; TEMP 36.9; O2SAT 99
[2021-06-19 16:00] VITALS: BP 120/65; PULSE 68; RESP 20; TEMP 36.6
[2021-06-19] MEDS: WITCH HAZEL 40 PADS 1 PAD TOPICAL (17:25)
[2021-06-19] MEDS: BENZOCAINE 20% AER SPR (*SP) 56 GM CAN 1 SPRAY TOPICAL (17:25)
[2021-06-19 19:08] VITALS: BP 118/67; PULSE 71; RESP 18; TEMP 36.4
--- NOTE | 2021-06-20 07:26 | PM.OBPNVD ---
OB - PN: Subj Subjective Date/time seen: 06/20/21 07:26 Patient doing well. Denies significant pain. Also denies any headache, chest pain, SOB, N/V. Ambulating without difficulty. Minimal lochia. OB - PN: Obj Data Labs CBC & Chem 7: 06/19/21 03:51 OB - PN A/P Assessment and Plan (1) Normal spontaneous vaginal delivery: Code(s): O80 - Encounter for full-term uncomplicated delivery Status: Acute Assessment and Plan: PPD#2 doing well dc home in stable condition emergency precautions reviewed Time Spent With Patient Time: Total time spent is greater than 50% in coordination of care (as documented) at patient's floor/unit and/or counseling patient: Exam Const: General: cooperative, healthy appearing, comfortable and no acute distress GI: Inspection: non-distended GI Palp: Yes Soft to palpation and No Tenderness to palpation present (GI) Other: fundus firm below umbilicus Extrem: Right lower extremity: edema (trace) Left lower extremity: edema (trace)
--- NOTE | 2021-06-20 07:28 | PM.OBDSVD ---
DS: Admitting Diagnosis Discharge Date 06/20/21 Admitting Diagnosis IUP at 40w2d Elective induction of labor OB - DS: Summary OB Procedures : None OB Procedures Intrapartum: Spontaneous Vag Delivery OB Procedures: : None Time Spent with Patient Time attestation: Total time spent providing and/or coordinating discharge services: DS: Data Data Completed and Pending Pending studies at discharge: Pending at discharge 06/18/21 20:21 Surgical [PTH] Routine Discharge Plan Discharge Attending physician on discharge: Madisyn Bryan Discharging Clinician: Madisyn Bryan Anticipated Discharge Date/Time: 06/20/21 07:28 Patient Disposition: Home, Self-Care Activity: as tolerated and pelvic rest Diet: regular Discharge Instructions: Call office ([phone]) to schedule a visit in 4-6 weeks. You may take Ibuprofen 600mg every 6 hours as needed for pain. Pain medication may make you constipated. It may be helpful to take an ovie-gso-iqbxkjo stool softener, such as Colace and/or Senokot, along with the pain medication to help lessen constipation. Call office or go to ED for pain not controlled with medication, headache, chest pain, shortness of breath, fever, chills, persistent nausea or vomiting, severe abdominal pain, heavy vaginal bleeding >2 pads/hour, foul vaginal discharge or odor, or problems with your breasts. 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
[2021-06-20 08:10] VITALS: BP 114/64; PULSE 72; RESP 16; TEMP 36.9; O2SAT 99
[2021-06-20] MEDS: IBUPROFEN 600 MG TABLET PO (09:43)
[2021-06-20] MEDS: MULTIVIT/MIN/PREN/FOL AC/IRON TABLET 1 TAB PO (09:43)
[2021-06-20] MEDS: DOCUSATE SODIUM 100 MG CAPSULE PO (09:43)
[2021-06-20] MEDS: MEASLES,MUMPS,RUBELLA VACCINE 0.5 ML VIAL (09:46)
--- NOTE | 2021-06-20 12:29 | PC.NURSE ---
0940 - Parents are involved in care. Father of baby states mother is every 2-3 hours. Mother denies discomfort with latch her infant to the breast. Voids and stools are great. 1015 - Mother called for a latch assessment. Mother denies pain, has good rocking motion. RN suggested positioning infant closer to mom aligning ear, shoulder, and hip, tucking baby's bottom in closer to improve chin buried into the breast. Detached due to less than 130 degree latch. Nipple appeared slightly tilted. Improved latch to the right breast in mother's preferred position of cradle hold. Infant maintained latch without discomfort to mother. Mother voiced understanding of information. Reported to primary RN.
[2021-06-21 10:58] VITALS: BP 115/80; PULSE 67; RESP 16; TEMP 36.8; O2SAT 98
== END 2021-06-20 12:20 | disposition home or self-care (01) | DRG 807 ==
LOC: ANHLDR 04:59 → ANHOB2 23:08
PROVIDERS: Admitting Provider Student in an Organized Health Care Education/Training Program; PCP Family Medicine; Visit Provider Student in an Organized Health Care Education/Training Program
DX: O77.0 Labor and delivery complicated by meconium in amniotic fluid (principal); Z37.0 Single live birth; Z3A.40 40 weeks gestation of pregnancy; O99.284 Endocrine, nutritional and metabolic diseases complicating childbirth; E06.3 Autoimmune thyroiditis
CPT/HCPCS: 36415; 85014; 85018; 85025; 86592; 86850; 86900; 86901; 88307; 90710; A9270; J2405; J2590; J2795; J3010; J7120

== ENCOUNTER 2021-06-25 15:27 | Outpatient (CLI) | payer BC, SELFPAY ==
[2021-06-25] VITALS (22 sets, daily range): BP systolic 130–142; BP diastolic 75–96; PULSE 42–67; RESP 16; TEMP 37.1; O2SAT 97–100
--- NOTE | 2021-06-25 16:07 | PC.NURSE ---
Addendum entered by Jaqueline Isbell RN 06/25/21 18:58: This note should actually be timed for 1734. Original Note: Dr. Bryan informed of BP's and pulse 42-58. Pt denies light headedness / dizziness, shortness of breath, chest discomfort, and feeling any palpitations. informed of lab results. Discussed pt's headache she has had since Wednesday. Order received to discharge from OB and have her go to ED for cardiac evaluation.
[2021-06-25 16:20] LABS: Hematocrit 33.7 % (37.0-47.0); Hemoglobin 11.2 g/dL (12.0-15.0); Mean Corpuscular HGB Conc 33.2 g/dl (32-36); Mean Corpuscular Hemoglobin 30.3 pg (26-34); Mean Corpuscular Volume 91.1 fl (80-100); Mean Platelet Volume 9.5 fl (7.4-10.4); Platelet Count Result 239 k/mm3 (150-375); Red Cell Distribution Width 13.1 % (11.5-14.5); White Blood Count 13.7 K/mm3 (4.5-10.0)
[2021-06-25 16:32] LABS: Alanine Aminotransferase 19 U/L (4-35); Albumin Level 3.3 g/dL (3.5-5.1); Alkaline Phosphatase 120 U/L (38-126); Anion Gap 4 mmol/L (8-16); Aspartate Amino Transferase 30 U/L (14-36); Bilirubin,Total 0.3 mg/dL (0.2-1.3); Blood Urea Nitrogen 11 mg/dL (7-17); Calcium 8.5 mg/dL (8.4-10.2); Carbon Dioxide 23 mmol/L (22-30); Chloride 111 mmol/L (98-107); Estimated Glomerular Filt Rate > 60; Glucose 78 mg/dL (65-110); Potassium 3.6 mmol/L (3.4-5.0); Sodium 138 mmol/L (137-145); Uric Acid 4.7 mg/dL (2.5-7.5)
[2021-06-25 16:39] LABS: Atypical Lymphocytes Present; Band Neutrophils Percent 1 % (0-6); Lymphocytes Absolute Manual 4.38 K/mm3 (1.1-4.5); Monocytes Absolute Manual 1.23 K/mm3 (0.1-0.90); Monocytes Percent Manual 9 % (3-9); Neutrophils Absolute Manual 8.08 K/mm3 (1.7-7.2); Neutrophils Percent Manual 58 % (46-73); Platelet Estimate Adequate (Adequate); Total Cells Counted 100
[2021-06-25 16:52] LABS: Add Urine Microscopic? YES; Appearance Urine Cloudy (Clear); Bacteria Urine Trace /hpf; Bilirubin Urine Negative (Negative); Blood Urine 3+ (Negative); Color Urine Yellow (Yellow); Glucose Urine UA Negative (Negative); Ketones Urine Negative (Negative); Leukocyte Esterase Ur 3+ LEU/UL (NEGATIVE); Mucus Urine Rare /lpf; Nitrate Urine Negative (Negative); Protein Urine Negative (Negative); Specific Grav Ur 1.006 (1.001-1.035); Squamous Epithelial Cell Urine Occasional /hpf (Few); Urobilinogen Urine Negative mg/dL (<2.0); WBC Urine >75 /hpf (0-3)
--- NOTE | 2021-06-25 16:54 | PC.NURSE ---
Dr. Bryan's office staff answered her cell phone and informed of pt's asymptomatic irregular bradycardia with pulse in the 40's-50's. Discussed hx of hypothyroidism. Requested her to ask Dr. Bryan if she would like pt to have an EKG while waiting for the rest of her labs to come back.
--- NOTE | 2021-06-25 17:54 | PC.NURSE ---
Called ED charge nurse to notify her of pt's evaluation in OB and Dr. Bryan's request for pt to be evaluated in ED for asymptomatic irregular bradycardia. ED RN states pt will need to go through triage. Discussed that pt will need to use a breast pump and RN suggested she do that before coming to ED.
--- NOTE | 2021-06-25 18:15 | PC.NURSE ---
Pt has finished pumping, basin with ice given to store breastmilk in. Pt to ED triage per wheelchair.
== END 2021-06-25 18:15 | disposition home or self-care (01) ==
LOC: ANHOBOP 15:33 → ANHOBPP 15:36
PROVIDERS: PCP Family Medicine; Visit Provider Student in an Organized Health Care Education/Training Program
DX: O13.5 Gestational [pregnancy-induced] hypertension without significant proteinuria, complicating the puerperium (principal)
CPT/HCPCS: 36415; 80053; 81001; 84550; 85025; 87086; 99199

== ENCOUNTER 2021-06-25 18:31 | Emergency (ER) | payer BC, SELFPAY ==
[2021-06-25] VITALS (7 sets, daily range): BP systolic 129–151; BP diastolic 77–111; PULSE 48–57; RESP 15–23; TEMP 36.6; O2SAT 99–100
--- NOTE | ~2021-06-25 | XR_ITS ---
EXAMINATION: XR chest 1V portable INDICATION: Preeclampsia, recent TECHNIQUE: Portable AP chest at 1938 hours COMPARISON: None available FINDINGS: There are minimal airspace opacities of the lung bases. No pleural effusion or pneumothorax is identified. The cardiomediastinal silhouette is normal. IMPRESSION: 1. Minimal bibasilar airspace opacities, consistent with atelectasis versus pneumonia. Reviewed, dictated and finalized at location F. IMPRESSION: 1. Minimal bibasilar airspace opacities, consistent with atelectasis versus pne umonia.
--- NOTE | 2021-06-25 19:03 | ECG_ITS ---
Measurements Intervals [place] Rate: 47 P: 6 NM: 156 QRS: 55 QRSD: 77 T: 52 QT: 405 QTc: 360 Interpretive Statements SINUS BRADYCARDIA, OTHERWISE NORMAL EKG NO PREVIOUS ECG AVAILABLE FOR COMPARISON Electronically Signed On 06-25-2021 20:17:25 CDT by Hilda Palafox M.D.
[2021-06-25 20:03] LABS: Hematocrit 35.8 % (37.0-47.0); Hemoglobin 11.8 g/dL (12.0-15.0); Mean Corpuscular Hemoglobin 30.2 pg (26-34); Mean Corpuscular Volume 91.6 fl (80-100); Mean Platelet Volume 9.7 fl (7.4-10.4); Platelet Count Result 260 k/mm3 (150-375); Red Blood Count 3.91 M/mm3 (4.2-5.4); Red Cell Distribution Width 13.2 % (11.5-14.5)
[2021-06-25 20:14] LABS: Alanine Aminotransferase 19 U/L (4-35); Albumin Level 3.4 g/dL (3.5-5.1); Alkaline Phosphatase 122 U/L (38-126); Anion Gap 4 mmol/L (8-16); Aspartate Amino Transferase 30 U/L (14-36); Bilirubin,Total 0.4 mg/dL (0.2-1.3); Blood Urea Nitrogen 9 mg/dL (7-17); Calcium 8.6 mg/dL (8.4-10.2); Carbon Dioxide 24 mmol/L (22-30); Chloride 110 mmol/L (98-107); Estimated CRCL calculation 127 ml/min; Estimated Glomerular Filt Rate > 60; Glucose 77 mg/dL (65-110); Potassium 3.6 mmol/L (3.4-5.0); Sodium 138 mmol/L (137-145)
[2021-06-25 20:16] LABS: Prothrombin Time 12.6 Seconds (11.1-14.7)
[2021-06-25 20:26] LABS: NT Pro B Type Natriuretic Pept 549 pg/mL (5-100); Troponin I < 0.012 ng/mL (0.000-0.034)
[2021-06-25 20:38] LABS: Band Neutrophils Percent 2 % (0-6); Eosinophils Absolute Manual 0.14 K/mm3 (0.02-0.5); Eosinophils Percent Manual 1 % (0-4); Lymphocytes Absolute Manual 4.76 K/mm3 (1.1-4.5); Monocytes Absolute Manual 0.84 K/mm3 (0.1-0.90); Monocytes Percent Manual 6 % (3-9); Neutrophils Absolute Manual 8.26 K/mm3 (1.7-7.2); Neutrophils Percent Manual 57 % (46-73); Total Cells Counted 100
[2021-06-25 20:39] LABS: Platelet Estimate Adequate (Adequate)
--- NOTE | 2021-06-25 20:43 | ED.GENADULT ---
HPI - General Adult General Chief complaint: Recheck/Abnormal Lab/Rx Stated complaint: sent from ob for bradycardia Time Seen by Provider: 06/25/21 19:00 Source: patient Mode of arrival: ambulatory Limitations: no limitations History of Present Illness HPI narrative: 36-year-old 1 para 1 1 week here with complaints of headache, leg swelling. Patient was initially evaluated by OB and was later sent here to the ER for bradycardia. Patient presently denies any chest discomfort or feeling lightheaded, short of breath. 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 Thyroid] 60 - 120 mg PO DAILY 06/25/21 06/25/21 Allergies Allergy/AdvReac Type Severity Reaction Status Date / Time clavulanic acid [Augmentin] Allergy Intermediate Rash Verified 06/25/21 18:57 amoxicillin [From Augmentin] Allergy Mild Rash Verified 06/25/21 18:57 AMOXICILLIN TRIHYDRATE Allergy Mild RASH Uncoded 03/18/21 09:16 POTASSIUM CLAVULANATE Allergy Mild RASH Uncoded 03/18/21 09:16 Review of Systems Review of Systems: All systems reviewed & are unremarkable except as noted in HPI and below Constitutional: Constitutional: Reports no additional constitutional complaints Eyes: Eyes: Reports no additional eye complaints ENT: Reports system reviewed and no additional complaints, except as documented Cardiovascular: Cardiovascular: Reports no additional cardiovascular complaints and Reports leg edema Respiratory: Respiratory: Reports no additional respiratory complaints Gastrointestinal: Gastrointestinal: Reports no additional gastrointestinal complaints Genitourinary: Genitourinary: Reports no additional female genitourinary complaints Musculoskeletal: Musculoskeletal: Reports no additional musculoskeletal complaints Integumentary/Breasts: Skin/Breast: Reports system reviewed and no additional complaints, except as docu PMFSH Past Medical History Medical History Chronic headaches Chronic low back pain (03/09/16) Depression Endometriosis, site unspecified (03/09/16) Shorty's disease Hypothyroidism Leucocytosis Reactive Leucocytosis Overweight Tobacco use Vitamin D deficiency Surgical History Surgical History History of adenoidectomy Hx of laparoscopy Hx of tonsillectomy Family History Family History Father Family history of atrial fibrillation Aortic aneurysm Family history of chronic obstructive pulmonary disease Dementia Grandparent Family history of lung cancer Heart disease Mother Family history of thyroid disease Social History Social History Smoking packs per day: 0.25 Smoking cigarettes per day: 5.0 Smoking status: Current every day smoker Tobacco type: cigarettes Second hand tobacco smoke exposure: Yes Additional smoking assessment comments: Quit 2013 Alcohol intake: current Alcohol use details: Social basis Substance use: never Additional living arrangements comments: . Additional occupation/education comments: Works at [employer] Gender identity (if verbalized by the patient): Female Sexual Orientation (if Verbalized by the Patient): Straight or Heterosexual Spiritual care concerns: No Exam Narrative: GENERAL: Well-appearing, well-nourished, and in no acute distress. HEAD: Normocephalic, atraumatic. EYES: PERRLA and EOMI. NECK: Supple.
== END 2021-06-25 21:14 | disposition home or self-care (01) ==
PROVIDERS: Emergency Provider Family Medicine; PCP Family Medicine
DX: O99.893 Other specified diseases and conditions complicating puerperium (principal); R00.1 Bradycardia, unspecified; R60.0 Localized edema; N80.9 Endometriosis, unspecified; O99.285 Endocrine, nutritional and metabolic diseases complicating the puerperium; E06.3 Autoimmune thyroiditis; E55.9 Vitamin D deficiency, unspecified; R91.8 Other nonspecific abnormal finding of lung field; Z87.891 Personal history of nicotine dependence
CPT/HCPCS: 36415; 71045; 80053; 83880; 84484; 85025; 85610; 93005; 99284

== ENCOUNTER 2021-07-31 13:40 | Outpatient (CLI) | payer BC, SELFPAY ==
[2021-07-31 13:55] LABS: Basophils Absolute Auto 0.1 K/mm3 (0.0-0.1); Basophils Percent Auto 0.4 % (0.2-1.2); Eosinophils Absolute Auto 0.2 K/mm3 (0-0.3); Eosinophils Percent Auto 1.1 % (0-4.4); Hematocrit 43.6 % (37.0-47.0); Hemoglobin 14.1 g/dL (12.0-15.0); Immature Granulocyte Absolute 0.04 K/mm3 (0.00-0.031); Immature Granulocyte Percent A 0.3 % (0-0.5); Lymphocytes Absolute Auto 4.96 K/mm3 (0.9-3.2); Mean Corpuscular HGB Conc 32.3 g/dl (32-36); Mean Corpuscular Hemoglobin 28.7 pg (26-34); Mean Corpuscular Volume 88.8 fl (80-100); Mean Platelet Volume 9.8 fl (7.4-10.4); Monocytes Absolute Auto 0.6 K/mm3 (0.1-0.6); Monocytes Percent Auto 4.2 % (2.6-8.5); Neutrophils Absolute Auto 8.4 K/mm3 (1.3-6.7); Platelet Count Result 280 k/mm3 (150-375); Red Blood Count 4.91 M/mm3 (4.2-5.4); Red Cell Distribution Width 12.2 % (11.5-14.5); White Blood Count 14.2 K/mm3 (4.5-10.0)
[2021-07-31 14:05] LABS: Blood Urea Nitrogen 11 mg/dL (8-26); Carbon Dioxide 23 mmol/L (22-30); Chloride 107 mmol/L (98-109); Estimated Glomerular Filt Rate > 60; Glucose 82 mg/dL (70-105); Ionized Calcium (POC) 1.15 mmol/L (1.11-1.31); Sodium 142 mmol/L (138-146)
[2021-07-31 16:36] LABS: Alanine Aminotransferase 16 U/L (6-35); Albumin Level 4.1 g/dL (3.5-5.1); Alkaline Phosphatase 87 U/L (38-126); Anion Gap 6 mmol/L (8-16); Aspartate Amino Transferase 24 U/L (14-36); Bilirubin,Total 0.3 mg/dL (0.2-1.3); Blood Urea Nitrogen 11 mg/dL (7-17); Calcium 8.6 mg/dL (8.4-10.2); Carbon Dioxide 24 mmol/L (22-30); Chloride 110 mmol/L (98-107); Estimated Glomerular Filt Rate > 60; Glucose 85 mg/dL (65-110); Sodium 140 mmol/L (137-145)
== END 2021-07-31 13:41 | disposition home or self-care (01) ==
LOC: ANHLAB 13:41
PROVIDERS: PCP Family Medicine; Visit Provider Internal Medicine Hematology & Oncology
DX: D72.823 Leukemoid reaction (principal)
CPT/HCPCS: 36415; 80047; 80053; 85025

== ENCOUNTER 2021-10-09 23:11 | Emergency (ER) | payer BC, SELFPAY ==
--- NOTE | ~2021-10-09 | XR_ITS ---
EXAMINATION: XR hip RT 2V w AP pelvis DATE: 10/10/2021 00:24 INDICATION: Right hip pain. TECHNIQUE: An anteroposterior view of the pelvis and 2 views of right hip were obtained. COMPARISON: None. FINDINGS: Bone alignment is normal. No fracture. Joint spaces are normal. IMPRESSION: 1. Normal pelvis and right hip. Reviewed, dictated and finalized at location A.
[2021-10-09 23:17] VITALS: BP 135/85; PULSE 77; RESP 16; TEMP 36.6; O2SAT 98
[2021-10-09] MEDS: KETOROLAC (*BKC) 60 MG/2 ML VIAL IM (23:33)
[2021-10-10 00:11] LABS: Pregnancy On Board Control Positive; Urine Pregnancy Test Negative
--- NOTE | 2021-10-10 00:28 | ED.EXTPRO ---
HPI - Extremity Problem General Chief complaint: Extremity Problem,Nontraumatic Stated complaint: R Hip Pain Source: patient Mode of arrival: ambulatory Limitations: no limitations History of Present Illness HPI Narrative: this is a 36-year-old female that presents with a history of right hip pain has a history of chronic back pain and hip pain has tried [id number]-[id number] medications with minimal relief rates her pain at about a 7/10, there is no abdominal pain there is no flank pain no hematuria no dysuria no fever chills Complaint: extremity pain Onset (ago): day(s) Pain Consistency: intermittent Location: right Severity scale (1-10): 7 Quality: aching Radiation: none Relieving factors: immobilization Exacerbating factors: walking Associated symptoms: denies other symptoms Related Data Home Medications Medication Instructions Recorded Confirmed thyroid (pork) 60 mg tablet (DIRECTOR OF MEDICAL SERVICES 60 - 120 mg PO DAILY 06/25/21 10/09/21 Thyroid) Allergies Allergy/AdvReac Type Severity Reaction Status Date / Time clavulanic acid [Augmentin] Allergy Intermediate Rash Verified 10/09/21 23:22 amoxicillin [From Augmentin] Allergy Mild Rash Verified 10/09/21 23:22 AMOXICILLIN TRIHYDRATE Allergy Mild RASH Uncoded 10/09/21 23:22 POTASSIUM CLAVULANATE Allergy Mild RASH Uncoded 10/09/21 23:22 Review of Systems Review of Systems: All systems reviewed & are unremarkable except as noted in HPI and below PMFSH Past Medical History Medical History Chronic headaches Chronic low back pain (03/09/16) Depression Endometriosis, site unspecified (03/09/16) Shorty's disease History of vaginal delivery 06/18/21 Hypothyroidism Leucocytosis Reactive Leucocytosis Overweight Tobacco use Vitamin D deficiency Surgical History Surgical History History of adenoidectomy Hx of laparoscopy Hx of tonsillectomy Family History Family History Father Family history of atrial fibrillation Aortic aneurysm Family history of chronic obstructive pulmonary disease Dementia Grandparent Family history of lung cancer Heart disease Mother Family history of thyroid disease Social History Social History Smoking packs per day: 0.25 Smoking cigarettes per day: 5.0 Smoking status: Current every day smoker Tobacco type: cigarettes Second hand tobacco smoke exposure: Yes Additional smoking assessment comments: Quit 2013 Alcohol intake: current Alcohol use details: Social basis Substance use: never Additional living arrangements comments: . Additional occupation/education comments: Works at [employer] Gender identity (if verbalized by the patient): Female Sexual Orientation (if Verbalized by the Patient): Straight or Heterosexual Spiritual care concerns: No Exam Const: General: healthy appearing Nutritional Appearance: well nourished Orientation/consciousness: patient oriented x3 Limitations: no limitations HENMT: Head: normal to inspection Ears: external ears normal General nose exam: Normal external nose present Eyes: Pupils: Equal, round and reactive pupils present EOM: EOMs intact bilaterally Neck: Neck: normal visual inspection Chest: Chest palpation & inspection: normal inspection of the chest Resp: Effort & Inspection: normal respiratory effort Auscultation: clear to auscultation bilaterally Cardio: Rate: regular rate Rhythm: regular rhythm GI: GI Palp: Yes Soft to palpation Auscultation: normal bowel sounds Urinary Catheter: Urinary Catheter: patent and draining Back/Spine/Pelvis: Back: no CVA tenderness Skin: General skin exam: normal color Rashes: no rashes Wounds: no wounds Neuro: General: patient oriented x3 Extrem: Other: tenderness some right lateral
[2021-10-10 00:56] VITALS: PULSE 88; RESP 16; O2SAT 100
== END 2021-10-10 00:57 | disposition home or self-care (01) ==
PROVIDERS: Emergency Provider Emergency Medicine; PCP Family Medicine
DX: S73.101A Unspecified sprain of right hip, initial encounter (principal)
CPT/HCPCS: 73502; 81025; 96372; 99283; J1885

== ENCOUNTER 2021-11-14 13:44 | Outpatient (CLI) | payer BC, SELFPAY ==
[2021-11-14 14:57] LABS: Thyroid Stimulating Hormone Reflex 5.28 u/IU/mL (0.36-3.74)
[2021-11-14 15:20] LABS: Free T4 Free Thyroxine Reflex 0.86 ng/dL (0.76-1.46)
[2021-11-19 01:35] LABS: Vitamin D 1,25 (OH)2 Total 46 pg/mL (18-72); Vitamin D2 1,25 (OH)2 <8 pg/mL; Vitamin D3 1,25 (OH)2 46 pg/mL
== END 2021-11-14 13:45 | disposition home or self-care (01) ==
LOC: CHSLAB 13:46
PROVIDERS: PCP Family Medicine; Visit Provider Family Medicine
DX: E55.9 Vitamin D deficiency, unspecified (principal); E11.9 Type 2 diabetes mellitus without complications; E03.9 Hypothyroidism, unspecified
CPT/HCPCS: 36415; 82652; 84439; 84443

== ENCOUNTER 2022-01-26 14:39 | Outpatient (CLI) | payer BC, SELFPAY ==
[2022-01-26 15:39] LABS: Thyroid Stimulating Hormone 0.19 uIU/mL (0.36-3.74)
== END 2022-01-26 14:40 | disposition home or self-care (01) ==
LOC: CHSLAB 14:40
PROVIDERS: PCP Family Medicine; Visit Provider Family Medicine
DX: E03.9 Hypothyroidism, unspecified (principal)
CPT/HCPCS: 36415; 84443

== ENCOUNTER 2022-03-30 18:14 | Outpatient (CLI) | payer BC, SELFPAY ==
[2022-03-30 19:19] LABS: Thyroid Stimulating Hormone 2.14 uIU/mL (0.36-3.74)
== END 2022-03-30 18:15 | disposition home or self-care (01) ==
LOC: CHSLAB 18:15
PROVIDERS: PCP Family Medicine; Visit Provider Family Medicine
DX: E03.9 Hypothyroidism, unspecified (principal)
CPT/HCPCS: 36415; 84443

== ENCOUNTER 2022-07-30 14:08 | Outpatient (CLI) | payer BC, SELFPAY ==
[2022-07-30 14:17] LABS: Basophils Absolute Auto 0.1 K/mm3 (0.0-0.1); Basophils Percent Auto 0.4 % (0.2-1.2); Eosinophils Absolute Auto 0.2 K/mm3 (0-0.3); Eosinophils Percent Auto 1.1 % (0-4.4); Hematocrit 42.6 % (37.0-47.0); Immature Granulocyte Absolute 0.06 K/mm3 (0.00-0.031); Immature Granulocyte Percent A 0.4 % (0-0.5); Lymphocytes Absolute Auto 5.15 K/mm3 (0.9-3.2); Lymphocytes Percent Auto 34.5 % (18.3-44.2); Mean Corpuscular HGB Conc 32.9 g/dl (32-36); Mean Corpuscular Hemoglobin 28.6 pg (26-34); Mean Corpuscular Volume 87.1 fl (80-100); Mean Platelet Volume 9.9 fl (7.4-10.4); Monocytes Absolute Auto 0.8 K/mm3 (0.1-0.6); Monocytes Percent Auto 5.6 % (2.6-8.5); Neutrophils Absolute Auto 8.7 K/mm3 (1.3-6.7); Platelet Count Result 257 k/mm3 (150-375); Red Blood Count 4.89 M/mm3 (4.2-5.4); Red Cell Distribution Width 13.7 % (11.5-14.5); White Blood Count 14.9 K/mm3 (4.5-10.0)
[2022-07-30 14:22] LABS: Blood Urea Nitrogen 9 mg/dL (8-26); Carbon Dioxide 24 mmol/L (22-30); Chloride 104 mmol/L (98-109); Estimated Glomerular Filt Rate > 60; Glucose 84 mg/dL (70-105); Ionized Calcium (POC) 1.16 mmol/L (1.11-1.31); Potassium 4.3 mmol/L (3.5-4.9); Sodium 142 mmol/L (138-146)
[2022-07-30 14:23] LABS: Atypical Lymphocytes Present; Platelet Estimate Adequate (Adequate); Schistocytes None Seen (NORMAL)
[2022-07-30 16:32] LABS: Alanine Aminotransferase 15 U/L (6-35); Albumin Level 4.1 g/dL (3.5-5.1); Alkaline Phosphatase 66 U/L (38-126); Anion Gap 6 mmol/L (8-16); Aspartate Amino Transferase 20 U/L (14-36); Bilirubin,Total 0.6 mg/dL (0.2-1.3); Blood Urea Nitrogen 10 mg/dL (7-17); Calcium 8.4 mg/dL (8.4-10.2); Carbon Dioxide 28 mmol/L (22-30); Chloride 107 mmol/L (98-107); Estimated Glomerular Filt Rate > 60; Glucose 82 mg/dL (65-110); Potassium 4.3 mmol/L (3.4-5.0); Sodium 141 mmol/L (137-145)
== END 2022-07-30 14:09 | disposition home or self-care (01) ==
LOC: ANHLAB 14:09
PROVIDERS: PCP Family Medicine; Visit Provider Internal Medicine Hematology & Oncology
DX: D72.823 Leukemoid reaction (principal)
CPT/HCPCS: 36415; 80047; 80053; 85025

== ENCOUNTER 2023-05-05 15:10 | Outpatient (CLI) | payer BC, SELFPAY ==
[2023-05-05 16:04] LABS: Alanine Aminotransferase 17 U/L (14-59); Albumin Level 3.7 g/dL (3.4-5.0); Anion Gap 10 mmol/L (8-16); Aspartate Amino Transferase 15 U/L (15-37); Bilirubin,Total 0.6 mg/dL (0.00-1.00); Blood Urea Nitrogen 13 mg/dL (7-18); Calcium 8.4 mg/dL (8.5-10.1); Carbon Dioxide 27 mmol/L (21-32); Chloride 106 mmol/L (98-108); Cholesterol 156 mg/dL (0-200); Estimated Glomerular Filt Rate > 60; Glucose 93 mg/dL (70-99); HDL Direct 33 mg/dL (40-60); Iron 48 ug/dL (50-170); Magnesium 1.8 mg/dL (1.8-2.4); Osmolality Calculated 296 mOsm/kg (285-295); Potassium 3.8 mmol/L (3.5-5.1); Sodium 143 mmol/L (136-145); Total Protein 6.5 g/dL (6.4-8.2); Triglycerides 240 mg/dL (0-150)
[2023-05-05 16:05] LABS: Alkaline Phosphatase 75 U/L (46-116); Free T4 Free Thyroxine 0.87 ng/dL (0.76-1.46); LDL Cholesterol Calculated 75 mg/dL (<130); Thyroid Stimulating Hormone 2.41 uIU/mL (0.36-3.74)
[2023-05-05 16:43] LABS: Vitamin B12 540 pg/mL (193-986)
[2023-05-08 05:25] LABS: Thyroid Peroxidase Antibodies 125 IU/mL (<9)
[2023-05-08 07:48] LABS: Total Triiodothyronine (T3) 138.2 ng/dL (76-181)
[2023-05-09 20:40] LABS: Vitamin D 25 Hydroxy 30 ng/mL (30-100)
== END 2023-05-05 15:11 | disposition home or self-care (01) ==
LOC: CHSLAB 15:11
PROVIDERS: PCP Nurse Practitioner Family; Visit Provider Nurse Practitioner Family
DX: D64.9 Anemia, unspecified (principal); R53.83 Other fatigue; Z79.899 Other long term (current) drug therapy; Z13.6 Encounter for screening for cardiovascular disorders; I10 Essential (primary) hypertension; E03.9 Hypothyroidism, unspecified
CPT/HCPCS: 36415; 80053; 80061; 82306; 82607; 83540; 83735; 84439; 84443; 84480; 86376

== ENCOUNTER 2023-08-05 13:56 | Outpatient (CLI) | payer BC, SELFPAY ==
[2023-08-05 14:08] LABS: Basophils Percent Auto 0.3 % (0.2-1.2); Eosinophils Absolute Auto 0.2 K/mm3 (0-0.3); Eosinophils Percent Auto 1.1 % (0-4.4); Hematocrit 45.1 % (37.0-47.0); Immature Granulocyte Absolute 0.07 K/mm3 (0.00-0.031); Immature Granulocyte Percent A 0.5 % (0-0.5); Lymphocytes Absolute Auto 4.28 K/mm3 (0.9-3.2); Mean Corpuscular HGB Conc 33.3 g/dl (32-36); Mean Corpuscular Hemoglobin 29.8 pg (26-34); Mean Corpuscular Volume 89.5 fl (80-100); Mean Platelet Volume 9.8 fl (7.4-10.4); Monocytes Absolute Auto 0.8 K/mm3 (0.1-0.6); Monocytes Percent Auto 5.7 % (2.6-8.5); Neutrophils Absolute Auto 9.4 K/mm3 (1.3-6.7); Neutrophils Percent Auto 63.4 % (45.5-73.1); Platelet Count Result 229 k/mm3 (150-375); Red Blood Count 5.04 M/mm3 (4.2-5.4); Red Cell Distribution Width 13.2 % (11.5-14.5); White Blood Count 14.8 K/mm3 (4.5-10.0)
[2023-08-05 14:12] LABS: Blood Urea Nitrogen 12 mg/dL (8-26); Carbon Dioxide 28 mmol/L (22-30); Chloride 102 mmol/L (98-109); Estimated Glomerular Filt Rate > 60; Glucose 90 mg/dL (70-105); Ionized Calcium (POC) 1.21 mmol/L (1.11-1.31); Potassium 4.2 mmol/L (3.5-4.9); Sodium 141 mmol/L (138-146)
[2023-08-05 21:53] LABS: Alanine Aminotransferase 16 U/L (6-35); Albumin Level 4.2 g/dL (3.5-5.1); Alkaline Phosphatase 70 U/L (38-126); Anion Gap 6 mmol/L (4-12); Aspartate Amino Transferase 23 U/L (14-36); Bilirubin,Total 0.6 mg/dL (0.2-1.3); Blood Urea Nitrogen 13 mg/dL (7-17); Calcium 9.1 mg/dL (8.4-10.2); Carbon Dioxide 25 mmol/L (22-30); Chloride 107 mmol/L (98-107); Estimated Glomerular Filt Rate > 60; Glucose 93 mg/dL (65-110); Potassium 4.3 mmol/L (3.4-5.0); Sodium 138 mmol/L (137-145)
== END 2023-08-05 13:57 | disposition home or self-care (01) ==
LOC: ANHLAB 13:58
PROVIDERS: PCP Nurse Practitioner Family; Visit Provider Internal Medicine Hematology & Oncology
DX: D72.823 Leukemoid reaction (principal)
CPT/HCPCS: 36415; 80047; 80053; 85025

== ENCOUNTER 2024-03-24 02:20 | Emergency (ER) | payer BC, SELFPAY ==
[2024-03-24 02:22] VITALS: BP 133/105; PULSE 91; RESP 18; TEMP 37.1; O2SAT 99
--- NOTE | 2024-03-24 02:46 | ED_ITS ---
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 Patient does have a history of sciatica, no fever chills no saddle paresthesias. MD elicited complaint: back pain Pertinent past history: prior back pain Onset (ago): hour(s) Timing: constant Severity: severe Pain scale (0-10): 10 Similar Symptoms Previously: Yes Quality: spasming Location: lumbar spine Radiation: right upper leg Exacerbating factors: movement, coughing/sneezing and lifting Relieving factors: immobilization Context: while lifting, turning/twisting and bending Related Data Allergies Allergy/AdvReac Type Severity Reaction Status Date / Time clavulanic acid (Augmentin) Allergy Intermediate Rash Verified 03/24/24 02:27 amoxicillin (From Augmentin) Allergy Mild Rash Verified 03/24/24 02:27 AMOXICILLIN TRIHYDRATE Allergy Mild RASH Uncoded 01/11/24 13:04 Review of Systems Review of Systems: All systems reviewed & are unremarkable except as noted in HPI and below PMFSH Past Medical History Medical History History of abnormal cervical Pap smear History of vaginal delivery 06/18/21 Shorty's disease Tobacco use Leucocytosis Reactive Leucocytosis Chronic low back pain (03/09/16) Endometriosis, site unspecified (03/09/16) Chronic headaches Vitamin D deficiency Hypothyroidism Depression Overweight Surgical History Surgical History Hx of laparoscopy History of adenoidectomy Hx of tonsillectomy Family History Family History Father Family history of atrial fibrillation Aortic aneurysm Family history of chronic obstructive pulmonary disease Dementia Grandparent Family history of lung cancer Heart disease Mother Family history of thyroid disease Social History Social History Smoking packs per day: 0.25 Smoking cigarettes per day: 5.0 Smoking status: Current every day smoker Tobacco type: cigarettes Second hand tobacco smoke exposure: Yes Alcohol intake: current Alcohol use details: Social basis Substance use: never Lack of Transportation: No Lack of Food: Never True Current Housing: I Have Housing Difficulty Paying Gas/Electric Bills: No Difficulty Paying for Meds: No Currently Unemployed: No Difficulty w/ Childcare or Family Care: No Living arrangements: alone Additional living arrangements comments: . Occupation/Education: occupation Additional occupation/education comments: Works at [employer] Gender identity (if verbalized by the patient): Female Sexual Orientation (if Verbalized by the Patient): Straight or Heterosexual Spiritual care concerns: No Exam Const: General: healthy appearing and no acute distress Nutritional Appearance: obese Orientation/consciousness: patient oriented x3 Limitations: no limitations Neck: Neck: normal visual inspection and no lymphadenopathy Chest: Chest palpation & inspection: normal inspection of the chest Resp: Effort & Inspection: normal respiratory effort Auscultation: clear to auscultation bilaterally Cardio: Rate: regular rate Rhythm: regular rhythm GI: GI Palp: Yes Soft to palpation Auscultation: normal bowel sounds Urinary Catheter: Urinary Catheter: patent and draining Skin: General skin exam: normal color Rashes: no rashes Neuro: General: patient oriented x3 and moves all extremities Extrem: Other: Right paravertebral tenderness with palpation with a positive straight leg raising test on the right Course Course Emergency Course: the patient received 60mg IM muscle relaxer and 60mg of IM Toradol and after reassessment patient's pain level has improved. Vital Signs Vital signs: Vital Signs Temperature 37.1 C 03/24/24 02:22 Pulse Rate 91 03/24/24 02:22 Respiratory Rate 18 03/24/24 02:22 Blood Pressure 133/105 H 03/24/24 02:22 Pulse Oximetry 99 03/24/24 02:22 Oxygen Delivery Room Air 03/24/24 02:22 Temperature 37.1 C 03/24/24 02:22 Pulse Rate 91 03/24/24 02:22 Respiratory Rate 18 03/24/24 02:22 Blood Pressure 133/105 H 03/24/24 02:22 Pulse Oximetry 99 03/24/24 02:22 Oxygen Delivery Room Air 03/24/24 02:22 Critical Care Time Critical Care Time Critical Care Time: No Discharge Plan Discharge Clinical Impression: Sciatica Qualifiers: Laterality: right Qualified Code(s): M54.31 - Sciatica, right side Patient Disposition: Home, Self-Care Condition: Stable Instructions: Sciatica (ED), Acute Low Back Pain (ED) Additional Instructions: advise rest, warm compress to affected area can take medicine as prescribed and follow with primary if symptoms persist or worsen. 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
[2024-03-24] MEDS: KETOROLAC (*BKC) 60 MG/2 ML VIAL IM (02:54)
[2024-03-24] MEDS: ORPHENADRINE CITRATE 30 MG/ML 2 ML VIAL 60 MG IM (02:55)
[2024-03-24 03:03] VITALS: BP 126/92; PULSE 82; RESP 18
== END 2024-03-24 03:02 | disposition home or self-care (01) ==
PROVIDERS: Emergency Provider Emergency Medicine; PCP Family Medicine
DX: M54.31 Sciatica, right side (principal); E03.9 Hypothyroidism, unspecified; F17.210 Nicotine dependence, cigarettes, uncomplicated
CPT/HCPCS: 96372; 99284; J1885; J2360

== ENCOUNTER 2024-08-07 14:22 | Outpatient (CLI) | payer BC, SELFPAY ==
[2024-08-07 14:36] LABS: Basophils Absolute Auto 0.1 K/mm3 (0.0-0.1); Basophils Percent Auto 0.3 % (0.2-1.2); Eosinophils Absolute Auto 0.1 K/mm3 (0-0.3); Eosinophils Percent Auto 0.8 % (0-4.4); Hematocrit 45.4 % (37.0-47.0); Immature Granulocyte Absolute 0.06 K/mm3 (0.00-0.031); Immature Granulocyte Percent A 0.4 % (0-0.5); Lymphocytes Absolute Auto 4.18 K/mm3 (0.9-3.2); Lymphocytes Percent Auto 27.5 % (18.3-44.2); Mean Corpuscular Hemoglobin 29.1 pg (26-34); Mean Corpuscular Volume 88.2 fl (80-100); Monocytes Absolute Auto 0.7 K/mm3 (0.1-0.6); Monocytes Percent Auto 4.8 % (2.6-8.5); Neutrophils Absolute Auto 10.1 K/mm3 (1.3-6.7); Neutrophils Percent Auto 66.2 % (45.5-73.1); Platelet Count Result 240 k/mm3 (150-375); Red Blood Count 5.15 M/mm3 (4.2-5.4); Red Cell Distribution Width 13.6 % (11.5-14.5); White Blood Count 15.2 K/mm3 (4.5-10.0)
[2024-08-07 14:38] LABS: Blood Urea Nitrogen 10 mg/dL (8-26); Carbon Dioxide 25 mmol/L (22-30); Chloride 106 mmol/L (98-109); Estimated Glomerular Filt Rate > 60; Glucose 81 mg/dL (70-105); Ionized Calcium (POC) 1.19 mmol/L (1.11-1.31); Potassium 3.8 mmol/L (3.5-4.9); Sodium 143 mmol/L (138-146)
[2024-08-07 14:43] LABS: Anisocytosis 1+; Platelet Estimate Adequate (Adequate)
[2024-08-07 14:44] LABS: Atypical Lymphocytes Present; Schistocytes None Seen
--- OUTSIDE RECORDS SUMMARY | 2024-08-07 15:30 | XMS_ITS | Clinical Summary ---
Author Organization [facility] Address [address] [place] [address] Care Team Providers Care Perinatal Tech Name Role Phone Marc Mahoney Primary Care Provider [phone] Source Comments [facility],non-owned Affiliates and Associated Physician Practices is amultiple site organization consisting of ambulatory clinics and hospital sitesin [place], [place], [place] and [place]. This disclosure is being madepursuant to the Care Everywhere program and may not contain all information available regarding this patient. Last updated 17.[facility] Allergies Active Allergy Reactions Criticality Noted Date Comments Augmentin Rash Medium 06/15/2016 Medications * Be aware that medications may not be up to date on this document. Alwaysverify current medications with the patient. Topiramate (TOPAMAX PO) Take 125 mg by mouth at bedtime Active rizatriptan (MAXALT) 10 MG tablet Take 10 mg by mouth Active thyroid (WESTHROID) 48.75 MG tablet Take 48.75 mg by mouth once daily Active Active Problems Problem Noted Date Diagnosed Date Chronic pelvic pain in female 07/01/2016 Dysmenorrhea 07/01/2016 Dysuria 07/01/2016 Family History Medical History Relation Name Comments CAD (Coronary Artery Disease) Father Relation Name Status Comments Father Social History Tobacco Use Types Packs/Day Years Used Date Smoking Tobacco: Former Cigarettes Smokeless Tobacco: Never Tobacco Cessation:Counseling Given: Yes Alcohol Use Standard Drinks/Week Comments Yes 0 (1 standard drink = 0.6 oz pur e alcohol) Comments No Sex and Gender Information Value Date Recorded Sex Assigned at Not on file Legal Sex Female 9:08 AM CDT Gender Identity Female Sexual Orientation Not on file Last Filed Vital Signs Vital Sign Reading Time Taken Comments Blood Pressure 114/74 10/15/2019 4:02 PM CDT Pulse 88 10/15/2019 4:02 PM CDT Temperature 36.4 C (97.5 F) 10/15/2019 4:02 PM CDT Respiratory Rate 16 10/15/2019 4:02 PM CDT Oxygen Saturation 97% 10/15/2019 4:02 PM CDT Inhaled Oxygen Concentration - - Weight 90.7 kg (200 lb) 10/15/2019 4:02 PM CDT Height 160 cm (5' 3) 10/15/2019 4:02 PM CDT Body Mass Index 35.43 10/15/2019 4:02 PM CDT Plan of Treatment Health Maintenance Due Date Last Done Comments HIV SCREENING 02/09/2000 HEPATITIS C SCREENING 02/04/2003 DTAP/TDAP/TD VACCINES (1 - Tdap) 02/09/2004 HEPATITIS B VACCINE (1 of 3 - 19+ 3-dose series) 02/09/2004 COVID-19 VACCINE ( - 2023-2 5 season) 2023 DEPRESSION SCREENING 03/01/2024 INFLUENZA VACCINE (Season Ended) 2024 ZOSTER VACCINE (1 of 2) 2035 HIB VACCINE Aged Out No longer eligi ble based on patient's age to complete this topic HPV VACCINE Aged Out No longer eligi ble based on patient's age to complete this topic MENINGOCOCCAL (Group B) VACC INE SHARED DECISION-MAKING Aged Out No longer eligibl e based on patient's age to complete this topic MENINGOCOCCAL GROUPS A/C/Y/W VACCINE Aged Out No longer eligible b ased on patient's age to complete this topic PNEUMOCOCCAL VACCINE Aged Out No long er eligible based on patient's age to complete this topic Insurance ANTHEM Advance Directives Documents on File Type Date Recorded Patient Boarder Hand Expl anation Adv Directive/Living Will/POA 06/15/2016 Care Teams Perinatal Tech Relationship Specialty Start Date End Date Marc aMhoney DO [address] [place] [id number] PCP - General 06/23/21
--- OUTSIDE RECORDS SUMMARY | 2024-08-07 15:30 | XMS_ITS | Encounter Summary ---
Author Organization [facility] Address [address] [place] [address] Care Team Providers Care Segmental Paving Supervisor Name Role Phone Marc Mahoney DO Primary Care Provider [phone] Encounter Details Date Type Department Care Team ([facility] st Contact Info) Description 08/07/2024 2:45 PM CDT Office Visit [facility] Oncology and Hematology - [place] [address] [facility] [address] [place] [address] Beck Medrano MD [address] [facility] [address] [place] [address] Leukemoid reaction (Primary Dx) Social History Tobacco Use Types Packs/Day Years Used Date Smoking Tobacco: Former Cigarettes 0.5 7 2 007 - 2013 E-Cigarette/Mist Inh alation Device Smokeless Tobacco: Never Tobacco Cessation:Counseling Given: Not Answered Alcohol Use Standard Drinks/Week Comments Yes 0 (1 standard drink = 0.6 oz pur e alcohol) occass Comments No Sex and Gender Information Value Date Recorded Sex Assigned at Not on file Legal Sex Female 9:33 AM 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 Gender Identity Not on file Sexual Orientation Not on file 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 Not on file Not on file documented as of this encounter Last Filed Vital Signs Vital Sign Reading Time Taken Comments Blood Pressure 112/77 08/07/2024 2:35 PM CDT Pulse 70 08/07/2024 2:35 PM CDT Temperature 36.9 C (98.4 F) 08/07/2024 2:35 PM CDT Respiratory Rate 14 08/07/2024 2:35 PM CDT Oxygen Saturation 98% 08/07/2024 2:35 PM CDT Inhaled Oxygen Concentration - - Weight 91.1 kg (200 lb 12.8 oz) 08/07/2024 2:35 PM CDT Height - - Body Mass Index 36.73 07/31/2021 2:25 PM CDT documented in this encounter Plan of Treatment Upcoming Encounters Date Type Department Care Team (Late st Contact Info) Description 08/13/2025 1:00 PM CDT Office Visit [facility] Oncology and Hematology - [place] [address] [facility] [address] [place] [address] Beck Medrano MD [address] [facility] [address] [place] [address] Scheduled Orders Name Type Priority Associated Diagnoses Orde r Schedule CBC WITH DIFFERENTIAL Lab Stat Leukemoid reaction Expected: 08/07/2025, Expires: 08/07/2025 documented as of this encounter Visit Diagnoses Diagnosis Leukemoid reaction- Primary documented in this encounter Care Teams Segmental Paving Supervisor Relationship Specialty Start Date End Date Marc Mahoney DO [address] [place] [address] PCP - General Family Practice 01/22/21 documented as of this encounter
--- OUTSIDE RECORDS SUMMARY | 2024-08-07 15:30 | XMS_ITS | Data Portability ---
Author Organization [facility] [place] Address [address] [place] [address] Care Team Providers Care Industrial Rehabilitation Consultant Name Role Phone KINZAMARLEY SORENSON Primary Care Provider Assessment Encounter Date Assessment Date Assessment LastModified by Organization Details LastModified Time 07/15/2020 07/15/2020 Annual gynecological exam performed. Patient will come back in a year unless there are new symptoms. [email or web address] Not available 07/15/2020 13:06:55 Plan of Treatment Reminders Order Date Submit Date Provider Last Modified By Organization Details Last Modified Time Details Appointments None recorded. Lab None recorded. Referral None recorded. Procedures None recorded. Surgeries None recorded. Imaging None recorded. Medication Orders Lysteda 650 mg tablet 021 021 [facility], [facility] [place], [address], 13:30:42 Patient TargetsNo targets recorded. Patient InstructionsNo instructions recorded. Reason for Referral None Reported. Results Created Date Observation Date Name Description Value Unit Range Abnormal Flag Note LastModifiedBy Organization Detail LastModifiedTime 07/16/19 21 07/15/2020 pap, IG + HR HPV image guided Pap, HPV regardless of Pap result SEE RESULT S BELOW CASE REPOR T: Cytol ogy Gynec ologi marcus Repor t Case: [id number] Autho kurtis murphy Provi chandana: Aly Yen Colle cted: 07/15 1431 CASE MANAGERS Order ing Locat ion: [place] [facility] Recei michelle: 07/16 0951 First Scree n: Monique Church ret, CT Speci men: Scree osiris Pap - Image d, Cervi x STATE MENT OF ADEQU ACY: Satis facto ry for evalu ation Trans forma tion zone compo nent prese nt FINAL DIAGN OSIS: Negat elena for Intra epith elial Lesio n or Malig samantha Elect gadiel bell jose m d by Monique Church ret, CT on 2020 at 10:37 AM ----- ----- ----- ----- ----- ----- ----- ----- ----- ----- ----- ----- ----- ----- ----- ----- ----- ---- HPV RESUL TS: HPV mRNA E6/E7 : No HPV mRNA Detec rosi NOTE: This high risk HPV mRNA assay detec ts fourt een high- risk HPV types (16, 18, 31, 33, 35, 39, 45, 51, 52, 56, 58, 59, 66, 68) witho ut diffe renti ation . CHART ABLE COMME NT: Note: This speci men was revie wed by a Cytot echno logis t and/o r Patho logis t (as indic ated in this repor t) after evalu ation using the Thinp rep Imagi ng Syste m. CLINI MARCUS INFOR MATIO N: Menst rual Statu s: LMP (if appli cable ): 021 Clini marcus Histo ry/Pr eviou s Pap: Type of Neopl sandra (if appli cable ): Other Histo ry: Hormo robin (if appli cable ): PAP EDUCA CHRISTELLE L NOTE: The Pap Test is a scree osiris test with an inher ent false negat elena rate. Liqui d-bas e sampl ing may decre ase, but will not elimi sergei, false negat elena resul ts. A negat elena resul t does not precl ude the prese nce and/o r devel opmen t of disea se, since the prese nce of abnor mal cells in the sampl e depen ds on the locat ion of the lesio n and sampl ing techn ique. Tana nued regul ar scree osiris is the best metho d of cance r preve ntion . If repor rosi cytol ogic findi ng do not corre late with physi marcus and/o r histo rical findi ngs, furth er inves tigat ion is recom florencio d, as clini chris tavarez nted. Not Available [facility] (Lab) [address] [facility], [place], [address], 07/17/2020 18:17:18 07/16/19 21 07/15/2020 trich omona s vagin brandt RNA trichomonas vaginalis ribosomal RNA (rrna) Negati ve negati ve Not Available [facility] (Lab) [address], [place], [address], 07/17/2020 18:17:19 07/16/19 21 07/15/2020 CT + NG RNA, PCR, unspe cifie d speci men chlamydia trachomatis, PCR Negati ve negati ve Not Available [facility] (Lab) [address] [facility] [address], [place], [address], 07/17/2020 18:17:19 07/16/19 21 07/15/2020 CT + NG RNA, PCR, unspe cifie d speci men neisseria gonorrhoeae, PCR Negati ve negati ve Not Available [facility] (Lab) [address], [place], [address], 07/17/2020 18:17:19 Result Notes None recorded. 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 13:11:41 Migraine 38651279 Active 2020 Daria loya [facility] 13:11:49 Problem Notes None recorded. Procedures Surgical History Date Name Laterality Status Provider Name and Address Organization Details Recorded Time 07/16/19 21 Date of Last [facility] 07/15/2020 13:11:54 06/30/19 19 Lingual frenectomy completed [facility] 07/15/2020 13:21:18 06/30/19 16 Laparoscopy completed [facility] 07/15/2020 13:20:11 05/31/19 15 Laparoscopy completed [facility] 07/15/2020 13:20:27 03/01/19 12 Unlisted px hands/fingers completed [facility] 07/15/2020 13:23:22 03/01/18 90 tonsilectomy/adeno ids completed [facility] 07/15/2020 13:20:42 03/01/18 89 lymphangiectomy completed [facility] 07/15/2020 13:23:42 Imaging Results None recorded. Procedure Notes None recorded. Medical Equipment None Reported. Allergies Allergen ID Allergen Name Allergen Category Reaction Reaction Severity Criticality Documentation Date Start Date Code Code System Note Provider Name and Address Organization Details Recorded Time 32080 Augmentin medicatio n Not available Not available Not available 07/15/2020 36765 2 RxNorm Dariaaron Major [facility] 13:10:25 Medications Name Sig Start Date Stop Date Status Note LastModified by Organization Details LastModified Time amoxicillin 500 mg capsule TAKE ONE CAPSULE BY MOUTH EVERY 8 HOURS 07/15 completed Not Available Not Available Not Available venlafaxine ER 75 mg capsule,ext ended release 24 hr active Not Available Not Available Not Available topiramate 25 mg tablet TAKE 3 TABLETS BY MOUTH DAILY FOR 30 DAYS. active Not Available Not Available No t Available ondansetron 8 mg disintegrat ing tablet DISSOLVE 1 TABLET ON THE TONGUE EVERY 8 HOURS NEEDED 07/15 completed Not Available Not Available Not Available rizatriptan 10 mg disintegrat ing tablet active Not Available Not Available N ot Available hydroxyzine HCl 25 mg tablet active Not Available Not Available Not Available ergocalcife rol (vitamin D2) 1,250 mcg (50,000 unit) capsule 07/15 completed Not Available Not Available Not Available diazepam 5 mg tablet TAKE 2 TABLETS BY MOUTH ONE HOUR PRIOR TO DENTAL APPOINTME NT. DO NOT DRIVE. 07/15 completed Not Available Not Available Not Available nitrofurant oin monohydrate /macrocryst als 100 mg capsule TK 1 C PO BID WITH THE MORNING AND TRINH MEAL FOR 5 DAYS 07/15 completed Not Available Not Available Not Available Nature-Thro id 65 mg tablet TK 2 TS PO D 07/15 completed Not Available Not Available Not Available tranexamic acid 650 mg tablet Take 2 tablets PO TID during menses x 5 days. active Not Available Not Available No t Available CASE MANAGERS Thyroid 60 mg tablet active Not Available Not Available Not Available Nature-Thro id 48.75 mg tablet TK 2 TS PO D 07/15 completed Not Available Not Available Not Available Vitals Date Recorded Body height Body mass index (BMI) Body weight Systolic blood pressure Diastolic blood pressure Provider Name and Address Organization Details Last Updated DateTime 07/15/2020 160.02 cm 36.5 kg/m2 00888.03 g 126 mm[Hg] 86 mm[Hg] Daria Major [facility] 13:10:13 Social History Question Answer Notes LastModified by Organizat ion Details LastModified Time Tobacco Smoking Status Former Smoker Daria Major [facility], [facility] 07/15/2020 13:19:18 If You Are , What Was Your Level Of Alcohol Consumption Prior To ? None [email or web address] Information not available 07/15/2020 Are You Blind Or Do You Have Difficulty Seeing? No [email or web address] Information n ot available 07/15/2020 What Is Your Level Of Caffeine Consumption? Moderate [email or web address] Information not available 07/15/2020 In The 14 Days Before Symptom Onset, Have You Had Close Contact With A Laboratory-confirm ed COVID-19 While That Case Was Ill? No [email or web address] Information n ot available 07/15/2020 In The 14 Days Before Symptom Onset, Have You Had Close Contact With A Person Who Is Under Investigation For COVID-19 While That Person Was Ill? No [email or web address] Information not available 07/15/2020 Have You Been To An Area Known To Be High Risk For COVID-19? No [email or web address] Information not available 07/15/2020 Are You Deaf Or Do You Have Serious Difficulty Hearing? No [email or web address] Information not available 07/15/2020 What Type Of Diet Are You Following? REGULAR [email or web address] Information n ot available 07/15/2020 Have You Ever Been Counseled For Unhealthy Alcohol Use? No Information not available 07/15/2020 Do You Use Your Seat Belt Or Car Seat Routinely? Yes [email or web address] Information not available 07/15/2020 Do You Have Smoke And Carbon Monoxide Detectors In Your Home? Yes [email or web address] Information not available 07/15/2020 Do You Use Sunscreen Routinely? Yes [email or web address] Information not available 07/15/2020 Has Tobacco Cessation Counseling Been Provided? No Information not available 07/15/2020 Sex: Unknown Functional Status Question Answer Note LastModified by Organizat ion Details LastModified Time Do you use any illicit or recreational drugs? No [email or web address] Information not available 07/15/2020 Do you or have you ever used any other forms of tobacco or nicotine? Yes [email or web address] Information not available 07/15/2020 What is your level of alcohol consumption? Occasional [email or web address] Information not available 07/15/2020 Do you or have you ever used smokeless tobacco? Never used smokeless tobacco [email or web address] Information not available 07/15/2020 Are you able to walk? YESWOREST [email or web address] Information not available 07/15/2020 Do you or have you ever used e-cigarettes or vape? Former user of electronic cigarettes [email or web address] Information not available 07/15/2020 What is your exercise level? Occasional [email or web address] Information not available 07/15/2020 Mental Status Question Answer Note LastModified by Organization D etails LastModified Time Do you feel stressed (tense, restless, nervous, or anxious, or unable to sleep at night)? [id number] [email or web address] Information not available 07/15/2020 Family History Relationship Description Onset Age of this Age Resolved Age Notes LastModified by Organization Details LastModified Time Father Heart disease [email or web address] Not available 07/15 13:17:29 Father Anxiety disorder [email or web address] Not available 07/15 13:18:09 Father Depressive disorder Not available 07/15 13:18:16 Father Mental disorder [email or web address] Not available 07/15 13:18:36 Maternal Grandmother Heart disease Not available 07/15 13:17:29 Maternal Grandfather Heart disease [email or web address] Not available 07/15 13:17:29 Maternal Grandfather Malignant neoplasm of lung Not available 07/15 13:17:42 Mother Disorder of thyroid gland [email or web address] Not available 07/15 13:17:59 Medical History Condition Response Allergies (Food, seasonal, environmental ) N Other Y Breast Cancer N Drug/Latex Allergies/Reactions N Blood Transfusion N Dermatologic Disorders N Lung Disease N Defects or Inherited Disease N Breast Problem N Gestational Diabetes N Hematologic disorders N Anesthesia Complications N History of STI N Deep Vein Thrombosis N Polycystic ovary syndrome N Anxiety Disorder N Autoimmune disease N Arthritis N Infertility N Polyps N Acid Reflux (GERD) N History of abnormal pap N Cancer N Stroke N Varicosities N Neurologic/Epilepsy N Endometriosis Y High Cholesterol N Headaches Y Fibromyalgia N Kidney Disease N Heart Problems N Kidney or Bladder Problems N Thyroid Problems Y GI Problems N Eating Disorder N Anemia N Art (IVF or FET) N Psychiatric Illness N Ovarian Cancer N Diabetes N Pulmonary (TB, Asthma) N Hepatitis/Liver Disease N No Past Medical History N Eczema N Urinary Tract Infection N Abuse/Domestic Violence N Asthma N Trauma/Violence N Depression/ depression N Heart Disease N Pre-Eclampsia N Hypertension N Osteoporosis N Thrombophilias N Gynecological History Statement/Question Response Abnormal Pap Y Date of Last Mammogram Date of LMP 06/29/2020 Was last menstrual period normal Y STIs/STDs N HPV Vaccine N Duration of Flow (days) 7 12 Current Control Method None Are cycles usually normal Y Frequency of Cycle (Q days) 28 Sexually Active? N Menses Monthly Y Age of first menstrual cycle 12 Date of Last Pap Smear 07/15/2020 Sexual Problems? N Desired Control Method LMP Approximate Obstetrics History GPAL:G 0 P 0 0 0 0 Type Value Living 0 Total 0 Past Encounters Encounter ID Performer Location Encounter Start Date Encounter Closed Date Diagnosis/Indication Diagnosis SNOMED-CT Code Diagnosis ICD10 Code Diagnosis Note [id number] Radha Ceja , [facility] [address] [address] 07/15/2020 12:05:17 07/15/2020 13:41:47 Gynecologic examination 53253242 Z01.419 Take Calcium with Vitamin D 1200mg daily if not receiving in daily diet. It is strongly advised to have an annual flu shot and up can obtain at most pharmacies . If you have not had a TDap shot in the last 10 years you should obtain one as well. Discussed with patient & provided with informatio n regarding Gardisil vaccine to prevent the 4 strains for HPV that cause cervical cancer if under age 26. Encourage safe sexual practices, to use condoms and limit partners if not already in a monogamous relationsh ip. Do monthly self breast exams. Have mammogram yearly or every other year depending on family history. BRCA testing is now available for patients with strong genetic history of female cancer. If interested contact the office. Engage in daily exercise of low impact aerobic exercise 45-60 minutes 4-5 times weekly. Avoid tobacco and illicit drugs as well as using moderation with alcohol intake less than 1-2 8 oz beverages daily. This lifestyle behavior pattern will lead to less health conditions and longer life span. If BMI greater than 25 weight watchers or dietary consult advised. Patient received above instructio ns, and questions have been answered. If you have any questions please call or respond to this email. Patient was made aware of the patient portal and may obtain a paper copy of today's plan if desired. Pap/hpv updated STD sent Mammo due age 40yo Secondary dysmenorrhea 84197430 N94.5 Hx of endometrio sis and painful periods. Has had [address] juan Isaac of [facility] with confirmed endo. Neg IC Does not want to be on hormones. We agreed to trial of premedicat ion with Midol/pamp rin 1-2 days prior to her onset of menses since it is predictabl e; and then she will also use Lysteda with start of menses as instructed to help light flow and hopefully lighten dysmenorrh ea. RTO x [facility]mos Health Concerns Section Related Observation LastModified by Organization Detai ls LastModified Time None Recorded Concern Status LastModified by Organization Details LastModified Time None Recorded Advance Directives Directive None Recorded Payers Encounter Date Sequence Insurance Name Policy Number Policy Trejo Covered Member ID Trejo Member ID Guarantor Name 07/15/2020 1 DAVID-LAZ (PPO) NONE Itzel Garcia [id number] Itzel Garcia Notes Date Note Type Note Provider Name and Address Organization Details Recorded Time 07/15/2020 text/html Annual GYNReport ed bypatient.Menstrua l cycle:Menorrhagia Urinary symptoms:No hematuria; No incontinence Vulva:No genital lesion Vagina:Normal vaginal discharge Breast:No breast pain; No breast lump; No nipple discharge Current Contraception:Not sexually active Sexual complaints:No sexual complaints; No pain during intercourse; Normal libido Menopausal Symptoms:No menopausal symptoms; Normal vaginal lubrication Psychological symptoms:No depression; No anxiety; No PMDD Preventive measures:Encourage self breast examination; Encourage regular exercise; Encourage no tobacco use; Encourage regular mammograms starting age 40; History of abnormal pap smear/cervical dysplasia Radha Ceja, [facility] [address], [place], [address], [place] [facility] [place] 07/15/2020 13:34:22 OBGyn Episode No OBEpisode recorded.
--- OUTSIDE RECORDS SUMMARY | 2024-08-07 15:30 | XMS_ITS | Clinical Summary ---
Author Organization [facility] [address] Address [address] [place] [address] Care Team Providers Care Marketing Researcher Name Role Phone Lc Obregon MD Primary Care Provider [phone] Bobo Riley MD Unavailable [phone] Pérez Fitzpatrick MD Unavailable [phone] Allergies Active Allergy Reactions Criticality Noted Date Comments Amoxicillin-Pot Clavulanate Rash Medium 06/16/19 17 Medications drospirenone-et hinyl estradiol (PERRY, 28,) 3-0.02 mg per tablet take 1 tablet by oral route every day 0 0 7 Active Additional Information Patient taking differently: oral Every morning, Indications: Contraception, Informant: Self, Reported on 06/27/2018 topiramate (TOPAMAX) 25 mg tablet Take 3 tablets every evening. 90 tablet 11 9 Active Additional Information Patient taking differently: 75 mg oral Nightly, Take 3 tablets every evening.,Indications: Migraine Prevention, Informant: Self, Reported on 06/27/2018 thyroid 48.75 mg tabletIndicatio ns:hypothyroidi sm 48.75 mg every morning Active rizatriptan (MAXALT) 10 mg tabletIndicatio ns:Migraine Take 10 mg by mouth once as needed for migraine May repeat in 2 hours if unresolved. Do not exceed 30 mg in 24 hours. Active oxyCODONE (ROXICODONE) 5 mg immediate release tabletIndicatio ns:Pain Take 1 tablet (5 mg total) by mouth every 4 (four) hours as needed for pain 30 tablet 9 Active ondansetron (ZOFRAN) 4 mg tablet Take 1 tablet (4 mg total) by mouth every 8 (eight) hours as needed for nausea or vomiting 20 tablet 9 Active Active Problems Problem Noted Date Diagnosed Date Tonsillitis 06/10/2018 Overview (07/26/2018): DIAGNOSIS: Lingual tonsillar hypertrophy Lingual tonsillitis, chronic PROCEDURE PERFORMED: (Osvaldo 07/11/18) Transoral robotic assisted lingual tonsillectomy Enlarged tonsils 06/07/2018 Chronic migraine without aur a without status migrainosus, not intractable 04/27/2018 Acute streptococcal pharyngitis 04/17/2016 Overview (06/06/2016): Strep throat Hypothyroidism 06/13/2014 Overview (06/06/2016): Hypothyroidism 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 Overview (06/03/2016): CHR LYMPHOCYT THYROIDIT Surgical History Surgery Date Site/Laterality Comments TONSILLECTOMY Tonsillectomy as a child OTHER SURGICAL HISTORY 03/01/1986 - 02/28/1987 lymph node removal HAND SURGERY 03/01/2011 - 02/29/2012 DILATION AND CURETTAGE OF UTERUS 2014 Medical History Medical History Date Comments 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 Family History Medical History Relation Name Comments Heart attack Father Heart attack Maternal Grandfather Hypothyroidism Other Family histor y of Hypothyroidism; Anesthesia problems Neg Hx Relation Name Status Comments Father Maternal Grandfather Other Social History Tobacco Use Types Packs/Day Years Used Date Smoking Tobacco: Former Cigarettes Q uit: 2015 Smokeless Tobacco: Never Alcohol Use Standard Drinks/Week Comments Yes 0 (1 standard drink = 0.6 oz pur e alcohol) social Comments No Sex and Gender Information Value Date Recorded Sex Assigned at Not on file Legal Sex Female 10:18 AM BUSINESS CONSULTANT Gender Identity Not on file Sexual Orientation Not on file Obstetrics History Last Filed Vital Signs Vital Sign Reading Time Taken Comments Blood Pressure 129/93 07/11/2018 11:50 AM CDT Pulse 65 07/11/2018 11:50 AM CDT Temperature 36.5 C (97.7 F) 07/11/2018 12:30 PM CDT Respiratory Rate 17 07/11/2018 11:50 AM CDT Oxygen Saturation 98% 07/11/2018 11:50 AM CDT Inhaled Oxygen Concentration - - Weight 92.8 kg (204 lb 9.4 oz) 07/11/2018 5:54 A M CDT Height 160 cm (5' 3) 07/11/2018 5:54 AM CDT Body Mass Index 36.24 07/11/2018 5:54 AM CDT Plan of Treatment Not on file Insurance [employer] [place] [facility] Care Teams Marketing Researcher Relationship Specialty Start Date End Date Lc Obregon MD [email or web address] [place] [address] PCP - General 05/29/16 Bobo Riley MD [address] [place] [address] Surgeon Otolaryngology 06/09/18 Pérez Fitzpatrick MD [address] [place] [address] Referring Physician Otolaryngology 06/09/18
--- OUTSIDE RECORDS SUMMARY | 2024-08-07 15:30 | XMS_ITS | Encounter Summary ---
Author Organization [facility] Address [address] [place] [address] Phone Care Team Providers Care Acid Blower Name Role Phone Lc Obregon MD Primary Care Provider [phone] Bobo Riley MD Unavailable Pérez Fitzpatrick MD Unavailable [phone] Encounter Details Date Type Department Care Team (Late st Contact Info) Description 03/05/2017 Orders Only [facility] ProviderPriscila MD [facility] [place] [address] Social History Tobacco Use Types Packs/Day Years Used Date Smoking Tobacco: Former Smokeless Tobacco: Never Alcohol Use Standard Drinks/Week Comments Yes 0 (1 standard drink = 0.6 oz pur e alcohol) Comments Unknown Sex and Gender Information Value Date Recorded Sex Assigned at Not on file Legal Sex Female 10:18 AM VICE PRESIDENT TAX Gender Identity Not on file Sexual Orientation Not on file documented as of this encounter Plan of Treatment Not on file documented as of this encounter Procedures Procedure Name Priority Date/Time Associated Diagnosis Comments DISCHARGE LABORATORY CUMULATIVE REPORT 03/05/2017 12:00 AM VICE PRESIDENT TAX documented in this encounter Results * DISCHARGE LABORATORY CUMULATIVE REPORT (03/05/2017 12:00 AM VICE PRESIDENT TAX) Narrative 03/05/2017 12:00 AM VICE PRESIDENT TAX Ordered by an unspecified provider. Historical Provider LAB BLOOD ORDERABLES Winnie l Result documented in this encounter Visit Diagnoses Not on filedocumented in this encounter Care Teams Acid Blower Relationship Specialty Start Date End Date Lc Obregon MD [address] [place] [address] PCP - General 05/29/16 Bobo Riley MD [address] [place] [address] Surgeon Otolaryngology 06/09/18 Pérez Fitzpatrick MD [address] [place] [address] Referring Physician Otolaryngology 06/09/18 documented as of this encounter
--- OUTSIDE RECORDS SUMMARY | 2024-08-07 15:30 | XMS_ITS | Referral Summary ---
Author Organization [facility] [place] [address] Address [address] [place] [address] Care Team Providers Care Blend Plant Operator Name Role Phone Lc Obregon MD Primary Care Provider [phone] Bobo Riley MD Unavailable [phone] Pérez Fitzpatrick MD Unavailable [phone] Allergies Active Allergy Reactions Criticality Noted [...] thyroiditis 07/15/2013 Overview (06/03/2016): CHR LYMPHOCYT THYROIDIT Social History Tobacco Use Types Packs/Day Years Used Date Smoking Tobacco: Former Cigarettes Q uit: 2014 Smokeless Tobacco: Never Alcohol Use Standard Drinks/Week Comments Yes 0 (1 standard drink = 0.6 oz pur e alcohol) social Comments No Sex and Gender Information Value Date Recorded Sex Assigned at Not on file Legal Sex Female 10:18 AM STRATEGIC DEBRIEFING OFFICER Gender Identity Not on file Sexual Orientation Not on file Last Filed [...] Plan of Treatment Not on file Insurance [employer] [place] [facility] Address: [facility] [id number] [place] [address] [facility] ACC[facility] Care Teams Blend Plant Operator Relationship Specialty Start Date End Date Lc Obregon MD [address] [place] [address] PCP - General 05/29/16 Bobo Riley MD [address] [place] [address] Surgeon Otolaryngology 06/09/18 Pérez Fitzpatrick MD [address] [place] [address] Referring Physician Otolaryngology 06/09/18
--- OUTSIDE RECORDS SUMMARY | 2024-08-07 15:30 | XMS_ITS | Clinical Summary ---
Author Organization [facility] Address [address] [place] [address] Care Team Providers Care Field Sales Executive Name Role Phone Marc Mahoney DO Primary Care Provider [phone] Allergies Active Allergy Reactions Criticality Noted Date Comments Amoxicillin-Pot Clavulanate Rash Medium 05/01/19 17 Medications rizatriptan (MAXALT CAD INTERN) 10 mg Tablet, Rapid Dissolve Take 10 mg by mouth Continuous as needed. 9 Active levothyroxine 112 mcg tablet Take 112 mcg by mouth daily in the morning. 5 Active norethindrone, Contraceptive, 0.35 mg Tablet Take by mouth. 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 Encounters Date Type Department Care Team Description 08/07/2024 2:45 PM CDT Office Visit [facility] Oncology and Hematology - [place] [address] [place] [address] Beck Medrano MD Leukemoid reaction (Primary Dx) 07/20/2024 External Device Data STL ABSTRACTION Provider, Abstract 07/19/2024 External Device Data STL ABSTRACTION Provider, Abstract 07/18/2024 External Device Data STL ABSTRACTION Provider, Abstract 06/13/2024 External Device Data STL ABSTRACTION Provider, Abstract 05/17/2024 External Device Data STL ABSTRACTION Provider, Abstract 05/17/2024 External Device Data STL ABSTRACTION Provider, Abstract from Last 3 Months Family History Medical History Relation Name Comments Heart Disease Father Relation Name Status Comments Brother 1 Alive Brother 2 Alive Father Alive Mother Alive Social History Tobacco Use Types Packs/Day Years Used Date Smoking Tobacco: Former Cigarettes 0.5 7 2 007 - 2014 E-Cigarette/Mist Inh alation Device Smokeless Tobacco: Never Tobacco Cessation:Counseling Given: Not Answered Alcohol Use Standard Drinks/Week Comments Yes 0 (1 standard drink = 0.6 oz pur e alcohol) occass Comments No Sex and Gender Information Value Date Recorded Sex Assigned at Not on file Legal Sex 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 Gender Identity Not on file Sexual Orientation Not on file 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 Not on file Not on file Last Filed Vital Signs [...] 12.8 oz) 08/07/2024 2:35 PM CDT Height 157.5 cm (5' 2) 07/31/2021 2:25 PM CDT Body Mass Index 36.73 07/31/2021 2:25 PM CDT Plan of Treatment Upcoming Encounters Date Type Department Care Team (Late st Contact Info) Description 08/13/2025 1:00 PM CDT Office Visit [facility] Oncology and Hematology - [place] [address] [facility] [address] [place] [address] Beck Medrano MD [address] [facility] [address] [place] [address] Health Maintenance Due Date Last Done Comments DTAP/TDAP/TD VACCINES (1 - Tdap) 02/09/2004 HEPATITIS B VACCINES (1 of 3 - 19+ 3-dose series) 02/09/2004 HPV/Cotest (21-29) 2006 HPV/Cotest (30-65) 2015 CERVICAL CANCER SCREENING 07/16/2023 PAP SMEAR 07/16/2023 07/15/2020 INFLUENZA VACCINE (#1) 2023 Preventative Visit- Commercial 03/01/2024 HPV VACCINES Aged Out No longer eligi ble based on patient's age to complete this topic Insurance [facility] BLUE OPTIONS Care Teams Field Sales Executive Relationship Specialty Start Date End Date Marc Mahoney DO [address] [place] [address] PCP - General Family Practice 01/22/21
== END 2024-08-07 14:23 | disposition home or self-care (01) ==
LOC: ANHLAB 14:23
PROVIDERS: PCP Nurse Practitioner Family; Visit Provider Internal Medicine Hematology & Oncology
DX: D72.823 Leukemoid reaction (principal)
CPT/HCPCS: 36415; 80047; 85025

== ENCOUNTER 2024-12-18 12:59 | Emergency (ER) | payer BC, SELFPAY ==
[2024-12-18 13:00] VITALS: BP 113/77; PULSE 84; RESP 18; TEMP 36.8; O2SAT 98
--- NOTE | 2024-12-18 13:12 | ED_ITS ---
HPI - General Adult General Chief complaint: Nausea/Vomiting/Diarrhea Stated complaint: abdominal pain & vomiting Time Seen by Provider: 12/18/24 13:07 Source: patient Mode of arrival: ambulatory Limitations: no limitations History of Present Illness HPI narrative: The patient is a 39-year-old woman with history of endometriosis, diagnosed by 2 laparoscopies, most recently in 2016. 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 , last menstrual period: two days ago. The patient comes to the emergency room with onset of mild diffuse abdominal pain, waxing waning in intensity, since 5:00 a.m. yesterday morning, associated with multiple episodes of emesis, more than 10, now with dry heaves, as well as watery diarrhea, 5 episodes today, 8 episodes yesterday. No hematochezia or melena or hematemesis. No urinary symptoms such as dysuria urgency frequency or hematuria. No back pain. No chest pain. No URI symptoms such as cough rhinorrhea nasal congestion. No fevers or chills. Last similar episode was 2 weeks ago with vomiting and diarrhea that lasted 1 day and resolved but did not have any associated abdominal discomfort. No sick contacts. No one else in the household has similar symptoms. Related Data Allergies Allergy/AdvReac Type Severity Reaction Status Date / Time clavulanic acid (Augmentin) Allergy Intermediate Rash Verified 03/30/24 13:11 amoxicillin (From Augmentin) Allergy Mild Rash Verified 03/30/24 13:11 AMOXICILLIN TRIHYDRATE Allergy Mild RASH Uncoded 03/30/24 13:11 Review of Systems 2 Review of Systems: All systems reviewed & are unremarkable except as noted in HPI and below Constitutional: Constitutional: Denies chills, Denies excessive sweating, Denies fatigue, Denies fever(s), Denies headache(s) and Denies weakness Eyes: Eyes: Denies change in vision and Denies photophobia ENT: Denies dysphagia, Denies dizziness, Denies headache(s), Denies lip swelling, Denies nasal congestion, Denies sore throat and Denies tongue swelling Cardiovascular: Cardiovascular: Denies chest pain, Denies syncope, Denies rapid heart rate and Denies dyspnea Respiratory: Respiratory: Denies cough, Denies dyspnea and Denies wheezing Gastrointestinal: Gastrointestinal: Reports abdominal pain, Denies constipation, Denies dysphagia, Reports diarrhea, Reports nausea and Reports vomiting Genitourinary: Genitourinary: Denies hematuria, Denies urinary frequency, Denies dysuria and Denies urinary urgency Musculoskeletal: Musculoskeletal: Denies back pain, Denies myalgias, Denies arthralgias, Denies joint swelling and Denies numbness Integumentary/Breasts: Skin/Breast: Denies pruritus, Denies erythema and Denies rash Neurologic: Denies confusion, Denies dizziness, Denies syncope, Denies headache(s), Denies focal weakness, Denies numbness and Denies weakness Psychiatric: Psychiatric: Denies anxiety and Denies confusion Endocrine: Endocrine: Denies excessive sweating and Denies fatigue Hematologic/Lymphatic: Hematologic/Lymphatic: Denies easy bleeding and Denies easy bruising Allergic/Immunologic: Allergic/Immunologic: Denies lip swelling, Denies tongue swelling and Denies wheezing PMFSH Past Medical History Medical History History of abnormal cervical Pap smear History of vaginal delivery 06/18/21 Shorty's disease Tobacco use Leucocytosis Reactive Leucocytosis Chronic low back pain (03/09/16) Endometriosis, site unspecified (03/09/16) Chronic headaches Vitamin D deficiency Hypothyroidism Depression Overweight Surgical History Surgical History Hx of laparoscopy History of adenoidectomy Hx of tonsillectomy Family History Family History Father Family history of atrial fibrillation Aortic aneurysm Family history of chronic obstructive pulmonary disease Dementia Grandparent Family history of lung cancer Heart disease Mother Family history of thyroid disease Social History Social History Smoking packs per day: 0.25 Smoking cigarettes per day: 5.0 Smoking status: Current every day smoker Tobacco type: cigarettes Second hand tobacco smoke exposure: Yes Alcohol intake: current Alcohol use details: Social basis Substance use: never Lack of Transportation: No Lack of Food: Never True Current Housing: I Have Housing Difficulty Paying Gas/Electric Bills: No Difficulty Paying for Meds: No Currently Unemployed: No Difficulty w/ Childcare or Family Care: No Living arrangements: alone Additional living arrangements comments: . Occupation/Education: occupation Additional occupation/education comments: Works at [employer] Gender identity (if verbalized by the patient): Female Sexual Orientation (if Verbalized by the Patient): Straight or Heterosexual Spiritual care concerns: No Exam 2 Const: General: healthy appearing, no acute distress, alert and well nourished Nutritional Appearance: well nourished Orientation/consciousness: patient oriented x3 Limitations: no limitations HENMT: Head: normal to inspection Ears: external ears normal F lynsey/Nose/Sinus: normal facial exam Face and sinus: normal facial exam M outh: Yes dry mucous membranes Throat: posterior oropharynx normal Eyes: Conjunctivae: conjunctivae normal Pupils: Equal, round and reactive pupils present EOM: EOMs intact bilaterally Neck: Neck: normal visual inspection and no meningeal signs Chest: Chest palpation & inspection: normal inspection of the chest and no tenderness Resp: Effort & Inspection: normal respiratory effort and not labored A uscultation: clear to auscultation bilaterally, no crackles, no rhonchi and no wheezes Cardio: Rate: regular rate Rhythm: regular rhythm Heart sounds: no murmurs GI: Inspection: non-distended GI Palp: Yes Soft to palpation, Yes Tenderness to palpation present (GI) (minimal abdominal tenderness without rebound or guarding), No Guarding due to palpation present (GI) and No Rebound tenderness present Other: No abdominal distention, no CVA tenderness, no tympany. : General: Yes no CVA tenderness Back/Spine/Pelvis: Back: no CVA tenderness Cervical Spine: No Cervical spine tenderness Thoracic/Lumbar Spine: No thoracic spinal tenderness Skin: General skin exam: normal color Rashes: no rashes Wounds: no wounds Neuro: General: patient oriented x3, moves all extremities, no meningeal signs, no focal motor deficits and CN's II-XI intact bilaterally Cranial nerves: Yes Equal, round and reactive pupils present Speech: normal speech Motor exam (neuro): 5/5 motor strength present throughout Sensory Exam: n ormal sensation Extrem: General: normal to inspection and no clubbing, cyanosis or edema Psych: Mental Status: mental status grossly normal Affect: normal affect Course Course Emergency Course: 39-year-old woman with mild diffuse abdominal discomfort with the predominant symptom being vomiting and diarrhea. Will hydrate with IV fluids and Zofran. Workup in progress. 14:37: White blood cell count is slightly elevated but similar to previous values, 12.6 today, 15.31 July 2024. She does have hematology follow-up for that. There is a left shift of 57% neutrophils and absolute neutrophil count is somewhat elevated at 7.18. The CMP shows a normal urine creatinine, normal electrolytes, normal lactic acid, normal amylase lipase and liver function tests. Urinalysis shows no evidence of urinary tract infection. There is 3+ bacteria but no leukocyte esterase no nitrate, and no white blood cells. Urine toxicology and alcohol is negative. This likely is gastroenteritis. No strong indication for CT imaging at this time given the absence of abdominal pain on reexamination. Will discharge home on Zofran p.r.n. and have her follow-up with her PCP. The patient has 3+ bacteria in her urine and is requesting an antibiotic will prescribe Bactrim for 5 days. I do not believe she has a UTI. She is agreeable with the plan. All questions answered. Vital Signs Vital signs: Vital Signs Temperature 36.8 C 12/18/24 13:00 Pulse Rate 84 12/18/24 13:00 Respiratory Rate 18 12/18/24 13:00 Blood Pressure 113/77 12/18/24 13:00 Pulse Oximetry 98 12/18/24 13:00 Oxygen Delivery Room Air 12/18/24 13:00 Temperature 36.8 C 12/18/24 13:00 Pulse Rate 50 L 12/18/24 14:38 Respiratory Rate 20 12/18/24 14:38 Blood Pressure 111/63 12/18/24 14:38 Pulse Oximetry 97 12/18/24 14:38 Oxygen Delivery Room Air 12/18/24 14:38 Medical Decision Making Vital Signs Vital Signs: Vital Signs Temperature 36.8 C 12/18/24 13:00 Pulse Rate 84 12/18/24 13:00 Respiratory Rate 18 12/18/24 13:00 Blood Pressure 113/77 12/18/24 13:00 Pulse Oximetry 98 12/18/24 13:00 Oxygen Delivery Room Air 12/18/24 13:00 Temperature 36.8 C 12/18/24 13:00 Pulse Rate 50 L 12/18/24 14:38 Respiratory Rate 20 12/18/24 14:38 Blood Pressure 111/63 12/18/24 14:38 Pulse Oximetry 97 12/18/24 14:38 Oxygen Delivery Room Air 12/18/24 14:38 Lab Data 12/18/24 13:28 12/18/24 13:28 Labs: Lab Results 12/18/24 12/18/24 Range/Units 13:26 13:28 WBC 12.6 H (4.8-10.8) K/mm3 RBC 5.23 (4.20-5.40) M/mm3 Hgb 15.4 H (12.0-15.0) g/dL Hct 46.2 (35.0-49.0) % MCV 88.3 (78.0-102.0) fL MCH 29.4 (27.0-31.0) pg MCHC 33.3 (32-36) g/dL RDW 13.0 (11.6-14.4) % Plt Count 245 (150-420) K/mm3 MPV 9.9 (9.2-11.8) fl Immature Gran % (Auto) Not Reportable Neut % (Auto) Not Reportable Lymph % (Auto) Not Reportable Florence % (Auto) Not Reportable Eos % (Auto) Not Reportable Baso % (Auto) Not Reportable Lymph # (Auto) Not Reportable Florence # (Auto) Not Reportable Eos # (Auto) Not Reportable Baso # (Auto) Not Reportable Abs Immat Gran (auto) Not Reportable Absolute Neuts (auto) Not Reportable Absolute Nucleated RBC Not Reportable Total Counted 100 Neutrophils % (Manual) 57 (46-73) % Band Neutrophils % 0 (0-6) % Lymphocytes % (Manual) 35 (18-44) % Monocytes % (Manual) 7 (3-9) % Eosinophils % (Manual) 1 (1-6) % Basophils % (Manual) 0 (0-1) % Nucleated RBC % Not Reportable Abs Neuts (Manual) 7.18 H (1.3-6.7) K/mm3 Abs Lymphs (Manual) 4.41 (1.1-4.5) K/mm3 Abs Monocytes (Manual) 0.88 (0.1-0.90) K/mm3 Absolute Eos (Manual) 0.12 (0.02-0.50) K/mm3 Abs Basophils (Manual) 0.00 (0-0.1) K/mm3 Atypical Lymphocytes Present Platelet Estimate Adequate (Adequate) Schistocytes Not Reportable Sodium 140 (137-145) mmol/L Potassium 4.0 (3.4-5.0) mmol/L Chloride 109 H (98-107) mmol/L Carbon Dioxide 24 (22-30) mmol/L Anion Gap 7 (4-12) mmol/L BUN 9 (7-17) mg/dL Creatinine 0.66 L (0.7-1.0) mg/dL Estim Creat Clear Calc 104 ml/min Estimated GFR > 60 (59 - ) Glucose 92 (65-110) mg/dL Calculated Osmolality 288 (285-295) mOsm/kg Lactic Acid 0.7 (0.4-2.0) mmol/L Calcium 9.5 (8.4-10.2) mg/dL Magnesium 1.9 (1.6-2.3) mg/dL Total Bilirubin 1.1 (0.2-1.3) mg/dL AST 25 (14-36) U/L ALT 21 (6-35) U/L Alkaline Phosphatase 70 (38-126) U/L Total Protein 7.8 (6.3-8.2) g/dL Albumin 4.4 (3.5-5.1) g/dL Amylase 68 (30-110) U/L Lipase 72 (23-300) U/L Urine Color Yellow (Yellow) Urine Appearance Clear (Clear) Urine pH 6.0 (5.0-8.0) Ur Specific Thornton >= 1.030 H (1.010-1.020) Urine Protein Trace H (Negative) Urine Glucose (UA) Negative (Negative) Urine Ketones Trace H (Negative) Ur Blood (Man) 2+ H (Negative) Urine Nitrate Negative (Negative) Urine Bilirubin 1+ H (Negative) Urine Urobilinogen 0.2 (0.2-1.0) mg/dL Leukocyte Esterase Rfl Negative (Negative) KALIE/UL Urine RBC 3-5 H (0-2) /hpf Urine WBC 0-3 (0-3) /hpf Ur Squamous Epith Cells Few (Few) /hpf Urine Bacteria 3+ H (None) /hpf Urine Mucus Moderate H /lpf Urine Test Negative Urine Opiates Screen Negative (Negative) Urine Methadone Screen Negative (Negative) Ur Barbiturates Screen Negative (Negative) Ur Phencyclidine Scrn Negative (Negative) Ur Amphetamine Screen Negative (Negative) U Benzodiazepines Scrn Negative (Negative) Urine Cocaine Screen Negative (Negative) U Cannabinoids Screen Negative (Negative) Ethyl Alcohol < 10 (<10) mg/dL Discharge Plan Discharge Clinical Impression: Gastroenteritis, Nausea vomiting and diarrhea Patient Disposition: Home Condition: Stable Instructions: Gastroenteritis (ED), Acute Nausea and Vomiting (ED), Abdominal Pain (ED) Additional Instructions: You most likely have gastroenteritis, as manifested by nausea vomiting and diarrhea. Zofran as needed under the tongue to help with the nausea symptoms Drink fluids to stay hydrated Bactrim antibiotics as requested for a potential Urinary Tract Infection. Follow-up with your primary care provider in the next 3-5 days for re-evaluation if there is no improvement in your symptoms Return if worse Patient Language: Bulgarian Prescriptions: New ondansetron 8 mg tablet,disintegrating 8 mg PO Q8H PRN (Reason: nausea and vomiting) 5 Days Qty: 14 0RF sulfamethoxazole-trimethoprim [Bactrim DS] 800-160 mg tablet 1 tablet PO Q12H 5 Days Qty: 10 0RF No Action tramadol 50 mg tablet 50 mg PO Q6H PRN (Reason: pain) Qty: 20 0RF cyclobenzaprine 5 mg tablet 5 mg PO TID PRN (Reason: muscle spasm) Qty: 20 0RF norethindrone (contraceptive) 0.35 mg tablet 0.35 mg PO DAILY Qty: 84 3RF rizatriptan 10 mg tablet,disintegrating See Rx Instructions PO .COMPLEX Qty: 7 3RF Rx Instructions: take 1 tab at onset of headache; if no relief may repeat 1 tab in 2hr; max = 3 tabs/day (24hr) PO levothyroxine 112 mcg tablet See Rx Instructions .ROUTE .COMPLEX Qty: 30 2RF Dose Instruction: TAKE ONE TABLET BY MOUTH DAILY Rx Instructions: TAKE ONE TABLET BY MOUTH DAILY Follow-up/Referrals: Marc Mahoney DO [Primary Care Provider, Family Practice] - 3 Days Referral Note: Nausea vomiting diarrhea with mild abdominal discomfort. Workup negative. On Zofran. For further follow-up. Clinical Impression: Nausea vomiting and diarrhea; Gastroenteritis Time of Disposition: 14:44
[2024-12-18] MEDS: ONDANSETRON INJ 4 MG/2 ML VIAL IV PUSH (13:27)
[2024-12-18] MEDS: SODIUM CHLORIDE 0.9% IV 1,000 ML 999 ML IV CONT (13:27)
[2024-12-18 13:33] LABS: Hematocrit 46.2 % (35.0-49.0); Hemoglobin 15.4 g/dL (12.0-15.0); Mean Corpuscular HGB Conc 33.3 g/dL (32-36); Mean Corpuscular Hemoglobin 29.4 pg (27.0-31.0); Mean Corpuscular Volume 88.3 fL (78.0-102.0); Platelet Count Result 245 K/mm3 (150-420); Red Blood Count 5.23 M/mm3 (4.20-5.40); White Blood Count 12.6 K/mm3 (4.8-10.8)
[2024-12-18 13:34] LABS: Add Urine Microscopic? YES; Appearance Urine Clear (Clear); Glucose Urine UA Negative (Negative); Leukocyte Esterase Ur Negative LEU/UL (Negative); Nitrate Urine Negative (Negative); Specific Grav Ur >= 1.030 (1.010-1.020)
[2024-12-18 13:40] LABS: Pregnancy On Board Control Positive
[2024-12-18 13:50] LABS: Alanine Aminotransferase 21 U/L (6-35); Albumin Level 4.4 g/dL (3.5-5.1); Alkaline Phosphatase 70 U/L (38-126); Anion Gap 7 mmol/L (4-12); Aspartate Amino Transferase 25 U/L (14-36); Bilirubin,Total 1.1 mg/dL (0.2-1.3); Blood Urea Nitrogen 9 mg/dL (7-17); Calcium 9.5 mg/dL (8.4-10.2); Carbon Dioxide 24 mmol/L (22-30); Chloride 109 mmol/L (98-107); Estimated CRCL calculation 104 ml/min; Estimated Glomerular Filt Rate > 60; Glucose 92 mg/dL (65-110); Lipase 72 U/L (23-300); Magnesium 1.9 mg/dL (1.6-2.3); Osmolality Calculated 288 mOsm/kg (285-295); Potassium 4.0 mmol/L (3.4-5.0); Sodium 140 mmol/L (137-145); Total Protein 7.8 g/dL (6.3-8.2)
[2024-12-18 14:07] LABS: Cannabinoid Screen Urine Negative (Negative)
[2024-12-18 14:12] LABS: Band Neutrophils Percent 0 % (0-6); Basophils Absolute Manual 0.00 K/mm3 (0-0.1); Basophils Percent Manual 0 % (0-1); Eosinophils Absolute Manual 0.12 K/mm3 (0.02-0.50); Eosinophils Percent Manual 1 % (1-6); Lymphocytes Absolute Manual 4.41 K/mm3 (1.1-4.5); Lymphocytes Percent Manual 35 % (18-44); Monocytes Absolute Manual 0.88 K/mm3 (0.1-0.90); Monocytes Percent Manual 7 % (3-9); Neutrophils Absolute Manual 7.18 K/mm3 (1.3-6.7); Neutrophils Percent Manual 57 % (46-73); Total Cells Counted 100
[2024-12-18 14:23] LABS: Amylase 68 U/L (30-110)
[2024-12-18 14:38] VITALS: BP 111/63; PULSE 50; RESP 20; O2SAT 97
--- OUTSIDE RECORDS SUMMARY | 2024-12-18 15:24 | XMS_ITS | Clinical Summary ---
Author Organization [facility] Address [address] [facility] [place] [address] Care Team Providers Care Interactive Media Marketing Director Name Role Phone Marc Mahoney DO Primary Care Provider [phone] Allergies Active Allergy Reactions Criticality Noted Date Comments Amoxicillin-Pot Clavulanate Rash Medium 05/01/19 17 Medications rizatriptan (MAXALT INSIDE SALES REPRESENTATIVE) 10 mg Tablet, Rapid Dissolve Take 10 mg by mouth Continuous as needed. 9 Active levothyroxine 112 mcg tablet Take 112 mcg by mouth daily in the morning. 5 Active norethindrone, Contraceptive, 0.35 mg Tablet Take by mouth. 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 Not on file Not [...] Description 08/13/2025 1:00 PM CDT Office Visit [facility]] Oncology and Hematology - [place] [address] [facility] [address] [place] [address] Beck Medrano MD [address] [facility] [address] [place] [address] Health Maintenance Due Date Last Done Comments Pre-Diabetes and Diabetes Screening 1985 DTAP/TDAP/TD VACCINES (1 - Tdap) 02/09/2004 HEPATITIS B VACCINES (1 of 3 - 19+ 3-dose series) 01/29 HPV/Cotest (21-29) 2006 HPV VACCINES (1 - 3-dose SCDM series) 02/09/2012 HPV/Cotest (30-65) 2015 CERVICAL CANCER SCREENING 07/16/2023 PAP SMEAR 07/16/2023 07/15/2020 INFLUENZA VACCINE (#1) 2024 Insurance [facility] BLUE OPT[employer] Care Teams Interactive Media Marketing Director Relationship Specialty Start Date End Date Marc Mahoney DO [address] [place] [address] PCP - General Family Practice 01/22/21
--- OUTSIDE RECORDS SUMMARY | 2024-12-18 15:24 | XMS_ITS | Encounter Summary ---
Author Organization [facility] Address [address] [place] [address] Phone Care Team Providers Care Equal Opportunity Counselor Name Role Phone Lc Obregon MD Primary Care Provider oBbo Riley MD Unavailable [phone] Pérez Fitzpatrick MD Unavailable [phone] Encounter Details Date Type Department Care Team (Late st Contact Info) Description 03/05/2017 Orders Only [facility] ProviderPrisicla MD [facility] [place] [address] Social History Tobacco Use Types Packs/Day Years Used Date Smoking Tobacco: Former Smokeless Tobacco: Never Alcohol Use Standard Drinks/Week Comments Yes 0 (1 standard drink = 0.6 oz pur e alcohol) Comments Unknown Sex and Gender Information Value Date Recorded Sex Assigned at Not on file Legal Sex Female 10:18 AM LEARNING AND DEVELOPMENT OFFICER Gender Identity Not on file Sexual Orientation Not on file documented as of this encounter Plan of Treatment Not on file documented as of this encounter Procedures Procedure Name Priority Date/Time Associated Diagnosis Comments DISCHARGE LABORATORY CUMULATIVE REPORT 03/05/2017 12:00 AM LEARNING AND DEVELOPMENT OFFICER documented in this encounter Results * DISCHARGE LABORATORY CUMULATIVE REPORT (03/05/2017 12:00 AM LEARNING AND DEVELOPMENT OFFICER) Narrative 03/05/2017 12:00 AM LEARNING AND DEVELOPMENT OFFICER Ordered by an unspecified provider. Historical Provider LAB BLOOD ORDERABLES Winnie l Result documented in this encounter Visit Diagnoses Not on filedocumented in this encounter Care Teams Equal Opportunity Counselor Relationship Specialty Start Date End Date Lc Obregon MD [address] [place] [address] PCP - General 05/29/16 Bobo Riley MD [address] [place] [address] Surgeon Otolaryngology 06/09/18 Pérez Fitzpatrick MD [address] [place] [address] Referring Physician Otolaryngology 06/09/18 documented as of this encounter
--- OUTSIDE RECORDS SUMMARY | 2024-12-18 15:24 | XMS_ITS | Clinical Summary ---
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
--- OUTSIDE RECORDS SUMMARY | 2024-12-18 15:24 | XMS_ITS | Clinical Summary ---
Author Organization [facility] Address [address] [place] [address] Care Team Providers Care Case Managers Name Role Phone MatMarc gomez Primary Care Provider [phone] Allergies Active Allergy Reactions Criticality Noted Date Comments Amoxicillin-Pot Clavulanate Rash Medium 05/01/19 17 Medications topiramate 25 MG tablet Take 75 mg by mouth nightly. Active rizatriptan 10 MG disintegrating tablet Take 10 mg by mouth as needed. 9 Active NATURE-THROID 97.5 MG Tab Take 97.5 mg by mouth daily. 9 Active Family History Medical History Relation Comments Heart Disease Father Cancer Maternal Grandmother Heart Disease Maternal Grandmother Stroke Maternal Grandmother Heart Disease Paternal Grandmother Relation Status Comments Father Maternal Grandmother Paternal Grandmother Social History Tobacco Use Types Packs/Day Years Used Date Smoking Tobacco: Former Smokeless Tobacco: Never Alcohol Use Standard Drinks/Week Comments Yes 0 (1 standard drink = 0.6 oz pur e alcohol) social Comments No Sex and Gender Information Value Date Recorded Sex Assigned at Not on file Legal Sex Female 5:20 PM CDT Gender Identity Not on file Sexual Orientation Not on file Last Filed Vital Signs Vital Sign Reading Time Taken Comments Blood Pressure 133/89 06/13/2020 5:15 PM CDT Pulse 82 06/13/2020 5:07 PM CDT Temperature 37.1 C (98.7 F) 06/13/2020 5:07 PM CDT Respiratory Rate 18 06/13/2020 5:07 PM CDT Oxygen Saturation 98% 06/13/2020 5:07 PM CDT Inhaled Oxygen Concentration - - Weight 90.7 kg (200 lb) 06/13/2020 5:07 PM CDT Height 160 cm (5' 3) 06/13/2020 5:07 PM CDT Body Mass Index 35.43 06/13/2020 5:07 PM CDT Plan of Treatment Health Maintenance Due Date Last Done Comments Cervical Cancer Screening Pa p Smear (Age 30 to 64) Every 3 Years 1985 Annual Physical 02/09/1988 Hepatitis C 2003 DTaP, Tdap and Td Vaccines ( 1 - Tdap) 02/09/2004 Hepatitis B Vaccines (1 of 3 - 19+ 3-dose series) 02/09/2004 HPV Vaccines (1 - 3-dose SCD M series) 02/09/2012 Cervical Cancer Screening Pa p with HPV Testing (Age 30 to 64) Every 5 Years 2015 Cervical Cancer Screening with HPV 2015 COVID-19 Vaccine (2023-2 5 season) 2024 Influenza Adult (#1) 2024 Hepatitis A Vaccines Aged Out No long er eligible based on patient's age to complete this topic Meningococcal B Vaccine Aged Out No l onger eligible based on patient's age to complete this topic Meningococcal Vaccine Aged Out No dasha kenroy eligible based on patient's age to complete this topic Pneumococcal Vaccine: Pediat rics (0 to 5 Years) and At-Risk Patients (6 to 49 Years) Aged Out No longer eligible b ased on patient's age to complete this topic RSV Immunizations Under 20 Months Aged Out No longer eligible based on patient's age to complete this topic Insurance [facility] Care Teams Case Managers Relationship Specialty Start Date End Date Marc Mahoney DO [address] [place] [address] PCP - General FAMILY PRACTICE 06/13/20
--- OUTSIDE RECORDS SUMMARY | 2024-12-18 15:25 | XMS_ITS | Clinical Summary ---
Author Organization [facility] Address [address] [place] [address] Care Team Providers Care Clinical Nurse Leader Name Role Phone Marc Mahoney Primary Care Provider [phone] Source Comments [facility],non-owned Affiliates and Associated Physician Practices is amultiple site organization consisting of ambulatory clinics and hospital sitesin [place], [place], [place] and [place]. This disclosure is being madepursuant to the Care Everywhere program and may not contain all information available regarding this patient. 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
[2024-12-18 15:26] VITALS: BP 112/76; PULSE 58; RESP 20; O2SAT 97
== END 2024-12-18 15:27 | disposition home or self-care (01) ==
PROVIDERS: Emergency Provider Emergency Medicine; PCP Family Medicine
DX: K52.9 Noninfective gastroenteritis and colitis, unspecified (principal); F17.210 Nicotine dependence, cigarettes, uncomplicated; E03.9 Hypothyroidism, unspecified; Z79.899 Other long term (current) drug therapy
CPT/HCPCS: 36415; 80053; 80307; 81001; 81025; 82077; 82150; 83605; 83690; 83735; 85025; 96361; 96374; 99284; J2405; J7030